=== PATIENT | female | born 1950 | race Caucasian/White ===

== ENCOUNTER → 2016-10-28 | Outpatient (CLI) | payer OTHER, MEDICAID ==
[~2016-10-28] MED LIST: ALENDRONATE SOD70 M1 PO; AMLODIPINE BESYL5 MG PO; ANTIBIOTIC; ANTIVERT/2525 MG PO; ASPIRIN325 M2 PO; BACTRIM DS 8001 TA1 PO; CARAFATE1 G1 PO; CATAFLAM50 MG PO; CLARITIN10 MG PO; CLINDAMYCIN HC300 MG PO; CLONAZEPAM2 MG PO; CYCLOBENZAPRINE10 MG PO; DELTASONE10 MG PO; DIAMOX SEQUELS500 MG PO; DIAMOX500 MG PO; DOXYCYCLINE HY100 M3 PO; DOXYCYCLINE HY100 M5 PO; DOXYCYCLINE MO100 MG PO; DOXYCYCLINE100 M3 PO; DUONEB 3 MG/3 ML3 M1 INH; DUONEB 3 MG/3 ML3 M1 NEB; FLEXERIL10 MG PO; FLEXERIL5 MG PO; GABAPENTIN TAB600 MG PO; HYCODAN/HYDROMET5 ML PO; HYDROCODONE BIT1 T11 PO; JANUMET 1000 MG1 TA1 PO; JANUMET 500 MG-1 TA1 PO; JANUMET 500 MG-1 TAB PO; JANUVIA25 MG PO; JANUVIA50 MG PO; KLONOPIN2 M1 PO; LASIX 40MG40 MG/4 ML PO; LASIX40 MG PO; LEVAQUIN750 MG PO; LOTENSIN40 MG PO; LOTREL 10 MG-201 CAP; LOTREL 10 MG-401 CA1 PO; LOTREL 10 MG-401 CAP PO; LOTREL 5 MG-101 CAP PO; MACROBID100 M1 PO; MEDROL DOSEPAK4 MG PO; METFORMIN500 MG PO; MOBIC7.5 MG PO; MOTRIN600 MG PO; MOTRIN800 MG PO; NAPROSYN500 MG PO; NEURONTIN300 MG PO; NORVASC10 MG PO; OMEPRAZOLE MAGN20 MG PO; OMNICEF300 MG PO; OXYGEN NAS; PERCOCET 325 MG1 TA2 PO; PERCOCET 325 MG1 TA3 PO; POTASSIUM20 MEQ PO; PREDNISONE10 MG PO; PREDNISONE50 MG PO; PROZAC20 MG PO; PYRIDIUM200 MG PO; REGLAN5 MG PO; RESTORIL15 MG PO; ROBITUSSIN AC 110 ML PO; SYMBICORT1 AE1 INH; TOPROL XL25 MG PO; TORADOL10 MG PO; TUSSI-ORGANID3840 M1 PO; TYLENOL W/CODEI1 TA2 PO; VENTOLIN H0.09 MG/AC INH; VIBRAMYCIN100 MG PO; VICODIN 5/500 505 MG PO; VITAMIN D50000 I1 PO; VITAMIN D50000 I3 PO; Vicodin 5/500 505 MG PO; WALKER DEVI; WELLBUTRIN XL300 MG PO; WHEELCHAIR DEVI; XANAX1 MG PO; XANAX2 M1 PO; ZITHROMAX500 MG PO; ZOCOR20 MG PO; ZOFRAN ODT4 MG SL; ZYRTEC10 M1 PO
== END | disposition home or self-care (01) ==
LOC: RAD 14:15
DX: M17.2 Bilateral post-traumatic osteoarthritis of knee (principal); M47.817 Spondylosis without myelopathy or radiculopathy, lumbosacral region; S52.502D Unspecified fracture of the lower end of left radius, subsequent encounter for closed fracture with routine healing; M25.561 Pain in right knee; M25.562 Pain in left knee; M11.262 Other chondrocalcinosis, left knee; M11.261 Other chondrocalcinosis, right knee; X58.XXXD Exposure to other specified factors, subsequent encounter

== ENCOUNTER 2016-11-28 20:49 | Inpatient (IN) | payer OTHER, MEDICAID ==
[~2016-11-28] VITALS: Ht 172.7 cm; Wt 125.0 kg
[~2016-11-28 20:49] MED LIST changes: -JANUMET 1000 MG1 TA1 PO; +JANUMET XR 50-1 EACH PO; +NORCO 7.5-3251 EACH PO
[2016-11-28 20:54] VITALS: BP 145/87
[2016-11-28 21:30] LABS: BASO % 0.4 % (0.0-1.0); EOS # 0.1 10*3/uL (0.0-0.4); HEMATOCRIT 33.5 % (37.0-47.0); HEMOGLOBIN 9.9 g/dl (12.0-16.0); LYMPH # 1.4 10*3/uL (1.3-4.4); LYMPH % 12.5 % (27.0-41.0); MEAN CELL VOLUME 82.7 fl (81.0-99.0); MEAN CORPUSCULAR HGB 24.4 pg (27.0-31.0); MEAN CORPUSCULAR HGB CONC 29.6 g/dl (33.0-37.0); MEAN PLATELET VOLUME 10.2 fl (9.6-12.3); MONO # 0.6 10*3/uL (0.1-1.0); MONO % 5.4 % (3.0-9.0); NEUT # 8.9 10*3/uL (2.3-7.9); NEUT % 80.3 % (47.0-73.0); PLATELET COUNT AUTOMATED 296 10*3/uL (130-400); RED BLOOD COUNT 4.05 10*6/uL (4.10-5.10); RED CELL DISTRI WIDTH 18.6 % (0-14.5)
[2016-11-28 21:47] LABS: ALBUMIN 3.6 gm/dl (3.1-4.5); CREATININE 1.29 mg/dL (0.55-1.02); POTASSIUM 2.9 mmol/L (3.5-5.1); TOTAL PROTEIN 7.5 gm/dL (6.4-8.2)
[2016-11-28 22:21] LABS: BILIRUBIN NEGATIVE (NEGATIVE); BLOOD NEGATIVE (NEGATIVE); CLARITY CLEAR (CLEAR); COLOR YELLOW (YELLOW); GLUCOSE NEGATIVE (NEGATIVE); KETONE TRACE (NEGATIVE); LEUKO ESTERASE NEGATIVE (NEGATIVE); NITRITE NEGATIVE (NEGATIVE); PH 5.5 (5.0-9.0); UROBILINOGEN 0.2 E.U./dl (0.2-1.0)
[2016-11-28 22:27] LABS: EPITHELIAL CELLS 25-30
[2016-11-28 22:28] LABS: BACTERIA 2+
[2016-11-29] VITALS: BP 128/72
[2016-11-29 06:58] LABS: BASO # 0.1 10*3/uL (0.0-0.1); BASO % 0.6 % (0.0-1.0); EOS # 0.2 10*3/uL (0.0-0.4); EOS % 1.9 % (1.0-4.0); HEMATOCRIT 33.1 % (37.0-47.0); HEMOGLOBIN 9.7 g/dl (12.0-16.0); LYMPH # 1.7 10*3/uL (1.3-4.4); LYMPH % 20.3 % (27.0-41.0); MEAN CORPUSCULAR HGB 25.3 pg (27.0-31.0); MEAN CORPUSCULAR HGB CONC 29.3 g/dl (33.0-37.0); MEAN PLATELET VOLUME 10.4 fl (9.6-12.3); MONO # 0.7 10*3/uL (0.1-1.0); MONO % 7.7 % (3.0-9.0); NEUT # 5.9 10*3/uL (2.3-7.9); NEUT % 69.1 % (47.0-73.0); PLATELET COUNT AUTOMATED 274 10*3/uL (130-400); RED BLOOD COUNT 3.84 10*6/uL (4.10-5.10); RED CELL DISTRI WIDTH 19.1 % (0-14.5); WHITE BLOOD COUNT 8.5 10*3/uL (4.8-10.8)
[2016-11-29 06:59] LABS: MEAN CELL VOLUME 86.2 fl (81.0-99.0)
[2016-11-29 07:11] LABS: ALBUMIN 3.3 gm/dl (3.1-4.5); CREATININE 1.22 mg/dL (0.55-1.02); PHOSPHOROUS 3.5 mg/dL (2.5-4.9); POTASSIUM 3.5 mmol/L (3.5-5.1); TOTAL PROTEIN 7.1 gm/dL (6.4-8.2)
[2016-11-29 07:16] LABS: FREE T4 1.16 ng/dl (0.76-1.46); THYROID STIM HORMONE (HS) 2.74 uIU/ml (0.358-4.75)
[2016-11-29 07:27] LABS: ACT PARTIAL THROMBO TIME 29.1 SECONDS (20.8-31.5)
[2016-11-29 08:00] VITALS: BP 108/62
[2016-11-29 08:19] LABS: VITAMIN D, 25-HYDROXY 20.4 ng/mL (30-100)
[2016-11-29] MEDS ORDERED: Motrin,Rufen800 MG PO (11:15)
[2016-11-29] MEDS ORDERED: ATROVENT HFA12.9 GM INH (11:17)
[2016-11-29] MEDS ORDERED: LAMICTAL25 MG PO (11:18)
[2016-11-29 12:00] VITALS: BP 100/50
[2016-11-29] MEDS ORDERED: Zofran4 MG PO (14:18)
[2016-11-29] MEDS ORDERED: VITAMIN D31000 UNIT PO (15:47)
[2016-11-29 16:00] VITALS: BP 119/72
== END 2016-11-29 16:30 | disposition home or self-care (01) | DRG 392 ==
LOC: ED 20:49 → EDHOLD 22:40 → 5E 22:40
PROVIDERS: Internal Medicine; Student in an Organized Health Care Education/Training Program; ADMIT Emergency Medicine
DX: K52.9 Noninfective gastroenteritis and colitis, unspecified (principal); E44.0 Moderate protein-calorie malnutrition; J96.10 Chronic respiratory failure, unspecified whether with hypoxia or hypercapnia; E87.2 Acidosis; E86.0 Dehydration; E87.6 Hypokalemia; D64.9 Anemia, unspecified; J44.9 Chronic obstructive pulmonary disease, unspecified; E11.65 Type 2 diabetes mellitus with hyperglycemia; E11.22 Type 2 diabetes mellitus with diabetic chronic kidney disease; N18.3 Chronic kidney disease, stage 3 (moderate); E87.8 Other disorders of electrolyte and fluid balance, not elsewhere classified; E66.9 Obesity, unspecified; G47.33 Obstructive sleep apnea (adult) (pediatric); E55.9 Vitamin D deficiency, unspecified; K80.20 Calculus of gallbladder without cholecystitis without obstruction; K76.0 Fatty (change of) liver, not elsewhere classified; I12.9 Hypertensive chronic kidney disease with stage 1 through stage 4 chronic kidney disease, or unspecified chronic kidney disease; Z87.81 Personal history of (healed) traumatic fracture; Z98.51 Tubal ligation status; Z87.891 Personal history of nicotine dependence; Z88.8 Allergy status to other drugs, medicaments and biological substances; Z82.5 Family history of asthma and other chronic lower respiratory diseases; Z82.49 Family history of ischemic heart disease and other diseases of the circulatory system; Z80.8 Family history of malignant neoplasm of other organs or systems

== ENCOUNTER → 2016-12-19 | Outpatient (CLI) | payer OTHER, MEDICAID ==
[~2016-12-19] MED LIST changes: +ATROVENT HFA12.9 GM INH; +LAMICTAL25 MG PO; +Motrin,Rufen800 MG PO; +VITAMIN D31000 UNIT PO; +Zofran4 MG PO
== END | disposition home or self-care (01) ==
LOC: US 17:00
DX: E11.9 Type 2 diabetes mellitus without complications (principal); E04.9 Nontoxic goiter, unspecified

== ENCOUNTER 2016-12-31 12:54 | Inpatient (IN) | payer OTHER, MEDICAID ==
[~2016-12-31] VITALS: Ht 167.6 cm; Wt 124.4 kg
[2016-12-31 12:58] VITALS: BP 118/68
[2016-12-31 13:42] LABS: BASO % 0.3 % (0.0-1.0); EOS # 0.2 10*3/uL (0.0-0.4); EOS % 1.3 % (1.0-4.0); HEMATOCRIT 35.6 % (37.0-47.0); HEMOGLOBIN 10.3 g/dl (12.0-16.0); LYMPH # 1.8 10*3/uL (1.3-4.4); LYMPH % 12.7 % (27.0-41.0); MEAN CELL VOLUME 85.2 fl (81.0-99.0); MEAN CORPUSCULAR HGB 24.6 pg (27.0-31.0); MEAN CORPUSCULAR HGB CONC 28.9 g/dl (33.0-37.0); MEAN PLATELET VOLUME 9.9 fl (9.6-12.3); MONO % 7.3 % (3.0-9.0); NEUT # 11.1 10*3/uL (2.3-7.9); PLATELET COUNT AUTOMATED 295 10*3/uL (130-400); RED BLOOD COUNT 4.18 10*6/uL (4.10-5.10); RED CELL DISTRI WIDTH 18.6 % (0-14.5); WHITE BLOOD COUNT 14.2 10*3/uL (4.8-10.8)
[2016-12-31 13:50] VITALS: BP 122/79
[2016-12-31 13:51] LABS: ACT PARTIAL THROMBO TIME 27.4 SECONDS (20.8-31.5)
[2016-12-31 13:57] LABS: ALBUMIN 3.3 gm/dl (3.1-4.5); ALKALINE PHOSPHATASE 86 U/L (45-117); BUN 18 mg/dl (7-24); CHLORIDE 108 mmol/L (98-107); CREATININE 1.49 mg/dL (0.55-1.02); LIPASE 177 U/L (73-393); MAGNESIUM 2.3 mg/dL (1.5-2.1); POTASSIUM 3.7 mmol/L (3.5-5.1); SGOT/AST 8 IU/L (3-35); SGPT/ALT 14 U/L (12-78); SODIUM 142 mmol/L (136-145); TOTAL PROTEIN 7.5 gm/dL (6.4-8.2)
[2016-12-31 14:01] LABS: TROPONIN I < 0.015 ng/ml (<0.045)
[2016-12-31 14:35] LABS: BILIRUBIN NEGATIVE (NEGATIVE); BLOOD NEGATIVE (NEGATIVE); CLARITY CLEAR (CLEAR); COLOR YELLOW (YELLOW); GLUCOSE NEGATIVE (NEGATIVE); KETONE NEGATIVE (NEGATIVE); LEUKO ESTERASE TRACE (NEGATIVE); NITRITE NEGATIVE (NEGATIVE)
[2016-12-31 14:49] LABS: BACTERIA 2+; EPITHELIAL CELLS 20-25; RBC 0-2 rbc/hpf (0-2)
[2016-12-31 14:50] LABS: MUCOUS TRACE
[2016-12-31 17:47] VITALS: BP 148/96
--- NOTE | 2016-12-31 18:29 | NUR ---
A 66, admitted to , under the services of MARK Beltran DO with a diagnosis of . Chief complaint is DIZZINESS AND NEAR-SYNCOPE. Patient arrived via ambulatory from ER. Monitor applied. Initial assessment completed. Vital signs taken and recorded. MARK BELTRAN DO notified of admission to the unit. Orders received. See assessment for past medical history, medications and allergies. Patient and/or family oriented to unit. [facility] visitation policy reviewed. Clothing/patient valuable form completed. ASHLEY ROMEO
[2016-12-31] MEDS ORDERED: LAMICTAL100 MG PO (20:09)
[2016-12-31] MEDS ORDERED: DIAMOX500 MG PO (20:14)
[2016-12-31] MEDS ORDERED: IBU800 MG PO (20:17)
[2016-12-31 20:46] VITALS: BP 110/60
[2017-01-01] VITALS: BP 134/79
--- NOTE | 2017-01-01 | NUR ---
SLEEPING, AWAKENS EASILY. RESPIRATIONS EASY. LUNGS DIMINISHED, CLEAR. PULSE OX 91% RA. CLAIMS COUGH PRODUCTIVE FOR YELLOW. TRACE BLE EDEMA NOTED. OFFERED AND EDUCATED REGARDING TEDS, DECLINED. CALL LIGHT WITHIN REACH. NO VOICED COMPLAINTS
--- NOTE | 2017-01-01 00:40 | NUR ---
REQUESTED AND RECEIVED NORCO PER PRN ORDER FOR COMPLAINTS OF BACK PAIN RATING AN 8. CALL LIGHT WITHIN REACH. WILL MONITOR FOR EFFECTIVENESS
--- NOTE | 2017-01-01 03:00 | NUR ---
EARLIER MED APPEARS EFFECTIVE. SLEEPING.
--- NOTE | 2017-01-01 06:00 | NUR ---
SLEPT THROUGHOUT NIGHT WITH NO DISTRESS NOTED. RESPIRATIONS EASY. CALL LIGHT WITHIN REACH. NO VOICED COMPLAINTS THIS SHIFT
[2017-01-01 06:02] LABS: BASO # 0.1 10*3/uL (0.0-0.1); BASO % 0.5 % (0.0-1.0); EOS # 0.2 10*3/uL (0.0-0.4); EOS % 1.2 % (1.0-4.0); HEMATOCRIT 33.5 % (37.0-47.0); HEMOGLOBIN 9.6 g/dl (12.0-16.0); LYMPH # 1.8 10*3/uL (1.3-4.4); LYMPH % 13.5 % (27.0-41.0); MEAN CELL VOLUME 86.3 fl (81.0-99.0); MEAN CORPUSCULAR HGB 24.7 pg (27.0-31.0); MEAN CORPUSCULAR HGB CONC 28.7 g/dl (33.0-37.0); MEAN PLATELET VOLUME 10.1 fl (9.6-12.3); MONO # 0.8 10*3/uL (0.1-1.0); MONO % 6.4 % (3.0-9.0); NEUT # 10.2 10*3/uL (2.3-7.9); NEUT % 77.9 % (47.0-73.0); PLATELET COUNT AUTOMATED 262 10*3/uL (130-400); RED BLOOD COUNT 3.88 10*6/uL (4.10-5.10); RED CELL DISTRI WIDTH 18.7 % (0-14.5); WHITE BLOOD COUNT 13.1 10*3/uL (4.8-10.8)
[2017-01-01 06:28] LABS: CREATININE 1.22 mg/dL (0.55-1.02); MAGNESIUM 2.4 mg/dL (1.5-2.1); TOTAL PROTEIN 6.8 gm/dL (6.4-8.2)
[2017-01-01 06:30] LABS: PHOSPHOROUS 4.8 mg/dL (2.5-4.9)
--- NOTE | 2017-01-01 07:40 | NUR ---
Medicated with norco per prn order for complaints of back and leg pain. Pt states pain is chronic and is 8/10.
[2017-01-01 08:00] VITALS: BP 128/70
--- NOTE | 2017-01-01 10:38 | NUR ---
Paper Coater in to talk to patient. Patient states lives at home with grand daughter. There are 0 steps in the home. Physician: Mendy Jones [facility] Home health services: would like [facility] nurse, pt and aides Patient's level of ADLs: MODERATE ASSIST Patient has working utilities: yes DME: edmundo paulino Follow-up physician's appointment after d/c: prefers to make her own appointment Does patient want to access PORTAL?: no Discharge plan Home. Patient stated she has an appointment in January to receive Passport services. In the meantime she would like to have a new referral for nursing, PT and aides from [facility]. . JAIR NGUYEN
--- NOTE | 2017-01-01 11:25 | NUR ---
PHYSICAL THERAPY PAtient evaluated on 4, full evaluation on to follow. Continue with PT as per plan of care with fall and chronic balance deficits precautions. Home with /7 family assist as prior and home health RN and PT prn. PAtient is moderate complexity via chart review, tests and evaluation: 70431. Thank you for this referral. samanta Mccord,PT
[2017-01-01 12:00] VITALS: BP 134/62
--- NOTE | 2017-01-01 12:38 | NUR ---
PHYSICAL THERAPY Halley was seen this PM 1:1 for her therapy gait, Pt supine in bed. Transfer supine/sit CGA X 1, sitting balance supervision x 1, X 5 min no LOB. Sit/stand and standing balance MOD DISHWASHING MACHINE OPERATOR X 1, with cueing just to stand. Followed by gait 125' X 1, MOD DISHWASHING MACHINE OPERATOR X 1, and Pt using the cortes hand rail at times for gait balance. Pt with gait balance deficits precautions and said that she may have walked too far. Pt back supine in bed to rest, call light and phone, treatment time 17 min. GEOVANNA GRADY SAFETY SITTER.
[2017-01-01 16:00] VITALS: BP 107/53
[2017-01-01 20:00] VITALS: BP 117/57
--- NOTE | 2017-01-01 21:00 | NUR ---
PATIENT STATED THAT IV WAS CAUSING HER PAIN. NO INFILTRATE WAS NOTED AND IV FLUSHED NORMAL. THE PATIENT REFUSED IV ABX AND REQUESTED THE IV TO COME OUT. DR. MYERS NOTIFIED AND STATED SINCE THE PT IS GOING TO BE DC IN THE MORNING A NEW IV WAS NOT NEEDED. NO OTHER CONCERNS FROM THE PATIENT.
[2017-01-02] VITALS: BP 138/59
--- NOTE | 2017-01-02 03:15 | NUR ---
PATIENT LSEPEING AT THIS TIME. NO DISTRESS NOTED. NO CONCERNS FROM PT.
[2017-01-02 08:00] VITALS: BP 128/66
[2017-01-02] MEDS ORDERED: SEPTDS PO (09:19)
[2017-01-02] MEDS ORDERED: MUCINEX ER600 MG PO (09:31)
--- NOTE | 2017-01-02 10:55 | NUR ---
Discharge instructions reviewed with patient/family. Patient receptive and verbalizes understanding. Follow-up care arranged. Written instructions given to patient/family. RAJINDER BRAVO
--- NOTE | 2017-01-02 12:31 | NUR ---
Patient discharged to home with new referral for [facility]. Faxed order and referral to [facility].
--- NOTE | 2017-01-02 14:26 | NUR ---
PHYSICAL THERAPY CO-SIGN I approve of the Phyical Therapy notes written above. NABIL LANGSTON PT
--- NOTE | 2017-01-02 14:30 | NUR ---
PHYSICAL THERAPY Patient performed all transfers Independenly. Patient performed gait with Close Supervision 200' x 1 with no assistive device. Patient performed ther ex in seated position x 10 minutes in all planes. Patient performed gait for 8 minutes 1:1 with TICKET SALES AGENT. Eliot Worrell PTA
== END 2017-01-02 10:55 | disposition home or self-care (01) | DRG 690 ==
LOC: ED 12:54 → 4E 16:20 → EDHOLD 16:20 → 4E 16:38
PROVIDERS: Emergency Medicine; Registered Nurse; ADMIT Internal Medicine
DX: N30.00 Acute cystitis without hematuria (principal); E44.0 Moderate protein-calorie malnutrition; E11.22 Type 2 diabetes mellitus with diabetic chronic kidney disease; E11.65 Type 2 diabetes mellitus with hyperglycemia; J44.1 Chronic obstructive pulmonary disease with (acute) exacerbation; Z68.41 Body mass index [BMI] 40.0-44.9, adult; N18.3 Chronic kidney disease, stage 3 (moderate); I12.9 Hypertensive chronic kidney disease with stage 1 through stage 4 chronic kidney disease, or unspecified chronic kidney disease; G47.33 Obstructive sleep apnea (adult) (pediatric); R26.81 Unsteadiness on feet; I71.9 Aortic aneurysm of unspecified site, without rupture; E66.09 Other obesity due to excess calories; E55.9 Vitamin D deficiency, unspecified; D64.9 Anemia, unspecified; Z91.19 Patient's noncompliance with other medical treatment and regimen; Z98.51 Tubal ligation status; Z88.8 Allergy status to other drugs, medicaments and biological substances; Z80.8 Family history of malignant neoplasm of other organs or systems; Z87.81 Personal history of (healed) traumatic fracture; Z82.49 Family history of ischemic heart disease and other diseases of the circulatory system

== ENCOUNTER → 2017-02-18 | Outpatient (CLI) | payer OTHER, MEDICAID ==
[~2017-02-18] MED LIST changes: +FEOSOL325 MG PO; +IBU800 MG PO; +KLONOPIN1 M1 PO; +LAMICTAL100 MG PO; +MUCINEX ER600 MG PO; +SEPTDS PO; +VOLTAREN100 GM T
--- NOTE | ~2017-02-18 | ST ---
[place], [place] EXERCISE STRESS TEST REPORT [id number] UN[facility] #: [id number] ROOM: DOCTOR: ASHIA RUFFIN MD BIRTHDATE: [birth year] DOS: 02/18/2017 Lexiscan portion of the Lexiscan Cardiolite. Baseline cardiogram sinus rhythm with nonspecific ST-T changes. A 0.4 mg of Lexiscan, duration of 10 seconds. With Lexiscan, the patient did not develop any chest pain or shortness of breath, but did have evidence of premature atrial contraction in an atrial bigeminal fashion, which reverted back to sinus rhythm. Blood pressure and heart rate response was normal. Nuclear images will be reported separately. ASHIA RUFFIN MD CM:STRESS:EXERCISE STRESS TEST REPORT [id number] HYACINTH RUFFIN MD
--- NOTE | 2017-02-18 07:15 | NUR ---
INFORMED CONSENT OBTAINED FOR LEXISCAN NUCLEAR STRESS TEST WITH DR. RUFFIN. RESTING EKG NSR WITH FREQUENT PAC'S WITH A RESTING HR OF 67 WITH BP OF 110/60. LUNGS WITH DIMINISHED BS WITH SPO2 OF 96% ON ROOM AIR. PT COMPLETED A 1:00 LEXISCAN PROTOCOL RECEIVING LEXISCAN 0.4 MG IV OVER 10 SECONDS. HAD NO CHEST PAIN OR ANY ST CHANGES. HAS C/O "ODD FEELING" THAT WAS RELIEVED IN RECOVERY. HAD A PEAK HR OF 79 WITH BP OF 94/58. LAST RECOVERY HR OF 78 WITH BP OF 100/58. AWAITING SCANNING IN STABLE CONDITION.
== END | disposition home or self-care (01) ==
LOC: CARD 02-11 07:30
DX: R06.09 Other forms of dyspnea (principal); R53.81 Other malaise; R06.02 Shortness of breath

== ENCOUNTER → 2017-02-26 | Outpatient (CLI) | payer OTHER, MEDICAID | END | disposition home or self-care (01) | LOC: MAMMO 10:17 | DX: Z12.31 Encounter for screening mammogram for malignant neoplasm of breast (principal) ==

== ENCOUNTER 2017-03-29 01:10 | Emergency (ER) | payer OTHER, MEDICAID ==
[~2017-03-29] VITALS: Ht 170.1 cm; Wt 122.5 kg
[2017-03-29 01:14] VITALS: BP 102/69
[2017-03-29] MEDS ORDERED: TESSALON PERLE100 MG PO (02:16)
[2017-03-29] MEDS ORDERED: AVPAK AZITHROM250 M1 PO (02:16)
== END 2017-03-29 03:02 | disposition home or self-care (01) ==
LOC: ED 01:10
DX: J18.9 Pneumonia, unspecified organism (principal); E11.22 Type 2 diabetes mellitus with diabetic chronic kidney disease; I12.9 Hypertensive chronic kidney disease with stage 1 through stage 4 chronic kidney disease, or unspecified chronic kidney disease; N18.3 Chronic kidney disease, stage 3 (moderate); J44.1 Chronic obstructive pulmonary disease with (acute) exacerbation; J96.10 Chronic respiratory failure, unspecified whether with hypoxia or hypercapnia; E78.00 Pure hypercholesterolemia, unspecified; E11.65 Type 2 diabetes mellitus with hyperglycemia; E87.6 Hypokalemia; E44.0 Moderate protein-calorie malnutrition; Z98.51 Tubal ligation status; Z87.891 Personal history of nicotine dependence; Z88.8 Allergy status to other drugs, medicaments and biological substances; Z79.899 Other long term (current) drug therapy

== ENCOUNTER → 2017-04-15 | Outpatient (CLI) | payer OTHER, MEDICAID ==
[~2017-04-15] MED LIST changes: +AVPAK AZITHROM250 M1 PO; +TESSALON PERLE100 MG PO
== END | disposition home or self-care (01) ==
LOC: RAD 14:44
DX: J18.9 Pneumonia, unspecified organism (principal)

== ENCOUNTER 2017-05-05 12:59 | Emergency (ER) | payer OTHER, MEDICAID ==
[~2017-05-05] VITALS: Ht 172.7 cm; Wt 123.4 kg
[2017-05-05 13:04] VITALS: BP 150/64
== END 2017-05-05 14:56 | disposition home or self-care (01) ==
LOC: ED 12:59
DX: S39.012A Strain of muscle, fascia and tendon of lower back, initial encounter (principal); E11.22 Type 2 diabetes mellitus with diabetic chronic kidney disease; I12.9 Hypertensive chronic kidney disease with stage 1 through stage 4 chronic kidney disease, or unspecified chronic kidney disease; N18.3 Chronic kidney disease, stage 3 (moderate); E66.9 Obesity, unspecified; W18.39XA Other fall on same level, initial encounter; F17.210 Nicotine dependence, cigarettes, uncomplicated; Z88.8 Allergy status to other drugs, medicaments and biological substances; Z79.4 Long term (current) use of insulin; Z79.899 Other long term (current) drug therapy; Y93.89 Activity, other specified; Y92.090 Kitchen in other non-institutional residence as the place of occurrence of the external cause; Y99.8 Other external cause status

== ENCOUNTER → 2017-05-07 | Outpatient (CLI) | payer OTHER, MEDICAID ==
[2017-05-07 12:57] LABS: BASO # 0.1 10*3/uL (0.0-0.1); BASO % 0.6 % (0.0-1.0); EOS # 0.2 10*3/uL (0.0-0.4); EOS % 1.7 % (1.0-4.0); HEMATOCRIT 39.4 % (37.0-47.0); HEMOGLOBIN 11.6 g/dl (12.0-16.0); LYMPH # 1.3 10*3/uL (1.3-4.4); LYMPH % 13.4 % (27.0-41.0); MEAN CELL VOLUME 88.1 fl (81.0-99.0); MEAN CORPUSCULAR HGB CONC 29.4 g/dl (33.0-37.0); MEAN PLATELET VOLUME 10.1 fl (9.6-12.3); MONO # 0.5 10*3/uL (0.1-1.0); MONO % 4.5 % (3.0-9.0); NEUT # 7.9 10*3/uL (2.3-7.9); NEUT % 79.4 % (47.0-73.0); PLATELET COUNT AUTOMATED 276 10*3/uL (130-400); RED BLOOD COUNT 4.47 10*6/uL (4.10-5.10); RED CELL DISTRI WIDTH 19.6 % (0-14.5)
[2017-05-07 13:06] LABS: BILIRUBIN NEGATIVE (NEGATIVE); BLOOD NEGATIVE (NEGATIVE); CLARITY SL CLOUDY (CLEAR); COLOR YELLOW (YELLOW); GLUCOSE NEGATIVE (NEGATIVE); KETONE NEGATIVE (NEGATIVE); LEUKO ESTERASE NEGATIVE (NEGATIVE); NITRITE NEGATIVE (NEGATIVE)
[2017-05-07 13:21] LABS: ALBUMIN 3.5 gm/dl (3.1-4.5); CREATININE 1.25 mg/dL (0.55-1.02); PHOSPHOROUS 3.3 mg/dL (2.5-4.9); POTASSIUM 4.1 mmol/L (3.5-5.1)
[2017-05-07 13:42] LABS: BACTERIA TRACE; EPITHELIAL CELLS 30-40
[2017-05-07 14:38] LABS: FERRITIN 6.6 ng/mL (10.0-291.0); PTH INTACT 77.2 pg/mL (14.0-72.0); VITAMIN D, 25-HYDROXY 16.7 ng/mL (30-100)
== END | disposition home or self-care (01) ==
LOC: LAB 12:11
PROVIDERS: Internal Medicine Nephrology
DX: N17.9 Acute kidney failure, unspecified (principal); N18.3 Chronic kidney disease, stage 3 (moderate); D63.1 Anemia in chronic kidney disease; N25.81 Secondary hyperparathyroidism of renal origin; N28.1 Cyst of kidney, acquired

== ENCOUNTER → 2017-07-07 | Outpatient (CLI) | payer OTHER, MEDICAID | END | disposition home or self-care (01) | LOC: US 06-27 11:00 | DX: E11.9 Type 2 diabetes mellitus without complications (principal) ==

== ENCOUNTER 2017-09-03 17:07 | Inpatient (IN) | payer OTHER, MEDICAID ==
[2017-09-03] VITALS (7 sets, daily range): BP systolic 90–121; BP diastolic 52–73
[~2017-09-03] VITALS: Ht 172.7 cm; Wt 124.3 kg
--- NOTE | ~2017-09-03 | CON ---
[place], [place] REPORT OF CONSULTATION NAME: FARHAT LAWLER [facility] #: [id number] UNIT #: [id number] ROOM: 412 [facility] BIR[facility] [birth year] DOS: 09/04/2017 CARDIOLOGY CONSULTATION HISTORY OF PRESENT ILLNESS: The patient came in with history of diastolic dysfunction with congestive heart failure and also shortness of breath and did not feel well at all and some confusion and the patient has a chronic kidney disease, CKD 3. The patient also has extreme fatigue and diminished appetite and a very tired sensation. The patient is on antibiotics now. The patient came to the Emergency Room. The patient has history of abdominal aortic aneurysm and will be evaluated further subsequently, but no acute consequence from that, history of cholelithiasis and recurrent congestive heart failure, respiratory insufficiency and GFR is only 30 to 15 mL diminished and chronic depression, essential hypertension and also the patient with dyslipidemia. The patient has type 2 diabetes mellitus. PAST SURGICAL HISTORY: Including open reduction and internal fixation and history of tubal ligation and wrist fracture. SOCIAL HISTORY: No history of smoking now, but a previous history of smoking, and occasional alcohol use, no drug use. FAMILY HISTORY: Mother has history of congestive heart failure, at 77. Father had a cancer, at 77. ALLERGIES: ALLERGIC TO LAMICTAL. MEDICATIONS: The patient is on iron supplements, furosemide, gabapentin, oxygen at home, simvastatin. The patient is also on metformin. We will keep it on hold for 48-72 hours. PHYSICAL EXAMINATION: GENERAL: The patient moderately obese. VITAL SIGNS: Blood pressure is 120/60, heart rate is 70. SKIN: Warm and not diaphoretic. NECK: Supple. No jugular venous distention. LUNGS: Diminished breath sounds at bases. HEART: S1, S2 regular. No rubs. ABDOMEN: Soft, obese. No significant edema noted. Pedal pulses good. RECTAL: Deferred, unrelated. GENITAL: Deferred, unrelated. BREASTS: Deferred, unrelated. LABORATORY DATA: Troponin is elevated. Creatinine is elevated. Hemoglobin is normal. Chest x-ray showed pulmonary congestion, could be related to the coronary artery disease, diastolic dysfunction of the left ventricle. Initial troponin was 0.578, next was 0.43, probably related to the non-ST elevation myocardial infarction. ASSESSMENT AND PLAN: The patient is for coronary arteriography and possible [place], [place] REPORT OF CONSULTATION NAME: FARHAT LAWLER UNIT #: [id number] ROOM: 412 DOCTOR: GRANT MOORE [facility] BIRTHDATE: [birth year] revascularization of right radial. Bobby test on the right wrist is normal. STACY BURNS MD CM:CONSTR:REPORT OF CONSULTATION 1859 09/26/17 0759 interface KAROLINA LUNA DO and TASHA CHOUDHURY DO
--- NOTE | ~2017-09-03 | EKG ---
[place], [place] ELECTROCARDIOGRAM REPORT NAME: FARHAT LAWLER UNIT #: [id number] ROOM: [facility] DOCTOR: GRANT MOORE [facility] BIRTHDATE: [birth year] DOS: 09/03/2017 TIME: 1809 hours. CONCLUSION: Sinus rhythm, low voltage, poor R-wave progression in the precordial leads, left axis, nonspecific ST changes. STACY BURNS MD CM:EKGRPT:ELECTROCARDIOGRAM REPORT [id number] STACY BURNS MD [facility]
[~2017-09-03 17:07] MED LIST changes: +ACETAZOLAMIDE250 MG PO
[2017-09-03 17:56] LABS: ABG HCO3 20.2 mmol/l (22-26); ABG O2 SATURATION 95.6 % (95-97); ARTERIAL BLOOD GAS PH 7.274 (7.35-7.45); ARTERIAL BLOOD GAS PO2 82.8 mmHg (80-90)
[2017-09-03 18:25] LABS: BASO # 0.1 10*3/uL (0.0-0.1); BASO % 0.6 % (0.0-1.0); EOS % 0.2 % (1.0-4.0); HEMATOCRIT 39.2 % (37.0-47.0); HEMOGLOBIN 11.5 g/dl (12.0-16.0); LYMPH # 3.1 10*3/uL (1.3-4.4); LYMPH % 24.5 % (27.0-41.0); MEAN CELL VOLUME 91.8 fl (81.0-99.0); MEAN CORPUSCULAR HGB 26.9 pg (27.0-31.0); MEAN CORPUSCULAR HGB CONC 29.3 g/dl (33.0-37.0); MEAN PLATELET VOLUME 10.2 fl (9.6-12.3); MONO # 1.4 10*3/uL (0.1-1.0); MONO % 11.4 % (3.0-9.0); NEUT # 7.9 10*3/uL (2.3-7.9); NEUT % 62.7 % (47.0-73.0); PLATELET COUNT AUTOMATED 283 10*3/uL (130-400); RED BLOOD COUNT 4.27 10*6/uL (4.10-5.10); RED CELL DISTRI WIDTH 16.8 % (0-14.5); WHITE BLOOD COUNT 12.6 10*3/uL (4.8-10.8)
[2017-09-03 18:33] LABS: ACT PARTIAL THROMBO TIME 29.6 SECONDS (20.8-31.5); INTERNATIONAL NORM RATIO 1.1 (2.0-3.5)
[2017-09-03 18:41] LABS: ALBUMIN 2.9 gm/dl (3.1-4.5); CREATININE 1.59 mg/dL (0.55-1.02); POTASSIUM 4.3 mmol/L (3.5-5.1); TOTAL PROTEIN 7.1 gm/dL (6.4-8.2)
[2017-09-03 18:47] LABS: TROPONIN I 0.877 ng/ml (<0.045)
[2017-09-03 21:23] LABS: BILIRUBIN NEGATIVE (NEGATIVE); BLOOD NEGATIVE (NEGATIVE); CLARITY CLEAR (CLEAR); COLOR YELLOW (YELLOW); GLUCOSE NEGATIVE (NEGATIVE); KETONE NEGATIVE (NEGATIVE); LEUKO ESTERASE NEGATIVE (NEGATIVE); NITRITE NEGATIVE (NEGATIVE); PH 5.5 (5.0-9.0); SPECIFIC GRAVITY <= 1.005 (1.005-1.030); UROBILINOGEN 0.2 E.U./dl (0.2-1.0)
[2017-09-03 21:34] LABS: BACTERIA 2+; RBC 0-2 rbc/hpf (0-2)
[2017-09-03 22:01] LABS: CKMB 2.5 ng/ml (0.5-3.6)
[2017-09-03 22:05] LABS: TROPONIN I 0.578 ng/ml (<0.045)
[2017-09-03] MEDS ORDERED: NORCO 10-325 T1 EACH PO (22:23)
[2017-09-04 00:16] VITALS: BP 100/52; BP 90/47
[2017-09-04 00:42] LABS: CKMB 2.5 ng/ml (0.5-3.6)
[2017-09-04 00:48] LABS: TROPONIN I 0.43 ng/ml (<0.045)
[2017-09-04 06:08] LABS: BASO # 0.1 10*3/uL (0.0-0.1); BASO % 0.5 % (0.0-1.0); EOS # 0.1 10*3/uL (0.0-0.4); EOS % 0.7 % (1.0-4.0); HEMATOCRIT 41.5 % (37.0-47.0); LYMPH # 1.2 10*3/uL (1.3-4.4); LYMPH % 9.8 % (27.0-41.0); MEAN CELL VOLUME 93.7 fl (81.0-99.0); MEAN CORPUSCULAR HGB 27.1 pg (27.0-31.0); MEAN CORPUSCULAR HGB CONC 28.9 g/dl (33.0-37.0); MEAN PLATELET VOLUME 10.5 fl (9.6-12.3); MONO # 1.1 10*3/uL (0.1-1.0); MONO % 9.2 % (3.0-9.0); NEUT # 9.5 10*3/uL (2.3-7.9); NEUT % 78.9 % (47.0-73.0); PLATELET COUNT AUTOMATED 247 10*3/uL (130-400); RED BLOOD COUNT 4.43 10*6/uL (4.10-5.10); RED CELL DISTRI WIDTH 16.8 % (0-14.5)
[2017-09-04 06:39] LABS: ALBUMIN 2.9 gm/dl (3.1-4.5); CREATININE 1.42 mg/dL (0.55-1.02); PHOSPHOROUS 3.8 mg/dL (2.5-4.9); POTASSIUM 4.2 mmol/L (3.5-5.1); TOTAL PROTEIN 7.1 gm/dL (6.4-8.2)
[2017-09-04 06:47] LABS: THYROID STIM HORMONE (HS) 0.623 uIU/ml (0.358-4.75)
[2017-09-04 08:00] VITALS: BP 91/55
[2017-09-04 08:36] LABS: VITAMIN D, 25-HYDROXY 25.2 ng/mL (30-100)
[2017-09-04] MEDS ORDERED: KLOR-CON M2020 ME1 PO (10:06)
[2017-09-04] MEDS ORDERED: ALL DAY ALLERGY10 M2 PO (10:07)
[2017-09-04 12:00] VITALS: BP 103/67
[2017-09-04 16:00] VITALS: BP 102/62
[2017-09-04] MEDS ORDERED: CARVEDILOL3.125 MG PO (19:05)
[2017-09-04 20:00] VITALS: BP 126/82
[2017-09-05] VITALS: BP 102/66
== END 2017-09-05 05:24 | disposition other institution (70) | DRG 683 ==
LOC: ED 17:07 → 4E 19:21 → EDHOLD 19:21 → 4E 20:05
PROVIDERS: Internal Medicine Hospice and Palliative Medicine; Physician Assistant
DX: N17.0 Acute kidney failure with tubular necrosis (principal); J96.11 Chronic respiratory failure with hypoxia; E44.0 Moderate protein-calorie malnutrition; I50.32 Chronic diastolic (congestive) heart failure; Z68.41 Body mass index [BMI] 40.0-44.9, adult; E87.8 Other disorders of electrolyte and fluid balance, not elsewhere classified; D72.829 Elevated white blood cell count, unspecified; D72.810 Lymphocytopenia; E11.65 Type 2 diabetes mellitus with hyperglycemia; E66.01 Morbid (severe) obesity due to excess calories; D64.9 Anemia, unspecified; E55.9 Vitamin D deficiency, unspecified; K80.20 Calculus of gallbladder without cholecystitis without obstruction; N18.3 Chronic kidney disease, stage 3 (moderate); J44.9 Chronic obstructive pulmonary disease, unspecified; F32.9 Major depressive disorder, single episode, unspecified; I11.0 Hypertensive heart disease with heart failure; F41.1 Generalized anxiety disorder; E78.2 Mixed hyperlipidemia; G47.33 Obstructive sleep apnea (adult) (pediatric); E11.40 Type 2 diabetes mellitus with diabetic neuropathy, unspecified; E11.22 Type 2 diabetes mellitus with diabetic chronic kidney disease; Z99.81 Dependence on supplemental oxygen; Z98.51 Tubal ligation status; Z80.9 Family history of malignant neoplasm, unspecified; Z83.6 Family history of other diseases of the respiratory system; Z82.49 Family history of ischemic heart disease and other diseases of the circulatory system; Z88.8 Allergy status to other drugs, medicaments and biological substances; Z79.899 Other long term (current) drug therapy; Z87.891 Personal history of nicotine dependence; Z82.5 Family history of asthma and other chronic lower respiratory diseases; Z81.8 Family history of other mental and behavioral disorders; Z83.3 Family history of diabetes mellitus

== ENCOUNTER → 2018-03-06 | Outpatient (CLI) | payer OTHER, MEDICAID ==
[~2018-03-06] MED LIST changes: +ALL DAY ALLERGY10 M2 PO; +CARVEDILOL3.125 MG PO; +CEPHALEXIN500 M1 PO; +KLOR-CON M2020 ME1 PO; +NORCO 10-325 T1 EACH PO
== END | disposition home or self-care (01) ==
LOC: US 10:25
DX: Z13.6 Encounter for screening for cardiovascular disorders (principal); I71.4 Abdominal aortic aneurysm, without rupture

== ENCOUNTER → 2018-03-27 | Outpatient (CLI) | payer OTHER, MEDICAID ==
[2018-03-27 15:29] LABS: CREATININE 1.07 mg/dL (0.55-1.02)
== END | disposition home or self-care (01) ==
LOC: LAB 14:55 → CT 14:55
PROVIDERS: Internal Medicine Cardiovascular Disease
DX: I71.4 Abdominal aortic aneurysm, without rupture (principal)

== ENCOUNTER 2018-09-13 17:20 | Inpatient (IN) | payer OTHER ==
[~2018-09-13] VITALS: Ht 175.2 cm; Wt 136.1 kg
--- NOTE | ~2018-09-13 | EKG ---
[place], [place] ELECTROCARDIOGRAM REPORT NAME: FARHAT LAWLER UNIT #: [id number] ROOM: 422 DOCTOR: DAYSI DRAFT REPORT BIRTHDATE: [birth year] [facility] Test Date: 2018-09-13 Test Time: 17:22:04 Pat Name: FARHAT LAWLER Department: ER Room: 422 Gender: F Manager Net: : 1950 Requested By: WAN HOBBS Order Number: [id number] Reading MD: Xochilt Hernández MD Measurements Intervals [place] Rate: 94 P: 60 FL: 150 QRS: -42 QRSD: 96 T: 56 QT: 346 QTc: 433 Interpretive Statements Sinus rhythm Left anterior fascicular block Borderline low voltage, extremity leads Compared to ECG 01/30/2018 13:24:28 Left anterior fascicular block now present Left-axis deviation no longer present Electronically Signed On 09-14-2018 15:04:26 PDT by Xochilt Hernández MD CM:EKGRPT:ELECTROCARDIOGRAM REPORT [id number] 1504 WAN AGUILERA DRAFT REPORT WAN HOBBS DO
--- NOTE | ~2018-09-13 | EKG ---
[place], [place] ELECTROCARDIOGRAM REPORT NAME: FARHAT LAWLER UNIT #: [id number] ROOM: 422 DOCTOR: DAYSI DRAFT REPORT BIRTHDATE: [birth year] [facility] Test Date: 2018-09-13 Test Time: 23:58:41 Pat Name: FARHAT LAWLER Department: Room: 422 Gender: F China Painter: EKG.TX : 1950 Requested By: WAN HOBBS Order Number: [id number] Reading MD: Xochilt Hernández MD Measurements Intervals [place] Rate: 91 P: 35 IN: 167 QRS: -34 QRSD: 96 T: 44 QT: 375 QTc: 462 Interpretive Statements Sinus rhythm Left axis deviation Low voltage, extremity and precordial leads Baseline wander in lead(s) III Compared to ECG 01/30/2018 13:24:28 Low QRS voltage now present Electronically Signed On 09-14-2018 15:07:56 PDT by Xochilt Hernández MD CM:EKGRPT:ELECTROCARDIOGRAM REPORT [id number] WAN AGUILERA DRAFT REPORT WAN HOBBS DO
--- NOTE | ~2018-09-13 | EKG ---
[place], [place] ELECTROCARDIOGRAM REPORT NAME: FARHAT LAWLER UNIT #: [id number] ROOM: 422 DOCTOR: DAYSI DRAFT REPORT BIRTHDATE: [birth year] [facility] Test Date: 2018-09-13 Test Time: 20:29:55 Pat Name: FARHAT LAWLER Department: Room: 422 Gender: F Founder And Chief Executive Officer: EKG.SC : 1950 Requested By: WAN HOBBS Order Number: [id number] Reading MD: Xochilt Hernández MD Measurements Intervals [place] Rate: 80 P: 61 MI: 157 QRS: -26 QRSD: 92 T: 57 QT: 385 QTc: 445 Interpretive Statements Sinus rhythm Borderline left axis deviation Low voltage, extremity and precordial leads Abnormal R-wave progression, late transition Baseline wander in lead(s) V1 Compared to ECG 01/30/2018 13:24:28 Low QRS voltage now present Electronically Signed On 09-14-2018 15:06:15 PDT by Xochilt Hernández MD CM:EKGRPT:ELECTROCARDIOGRAM REPORT [id number] WAN AGUILERA DRAFT REPORT WAN HOBBS DO
[2018-09-13 17:25] VITALS: BP 149/103
[2018-09-13 17:43] LABS: BASO # 0.1 10*3/uL (0.0-0.1); BASO % 0.5 % (0.0-1.0); EOS # 0.1 10*3/uL (0.0-0.4); EOS % 0.4 % (1.0-4.0); HEMOGLOBIN 11.9 g/dl (12.0-16.0); LYMPH # 1.5 10*3/uL (1.3-4.4); LYMPH % 10.3 % (27.0-41.0); MEAN CELL VOLUME 93.8 fl (81.0-99.0); MEAN CORPUSCULAR HGB 28.6 pg (27.0-31.0); MEAN CORPUSCULAR HGB CONC 30.5 g/dl (33.0-37.0); MEAN PLATELET VOLUME 10.3 fl (9.6-12.3); MONO # 0.5 10*3/uL (0.1-1.0); MONO % 3.3 % (3.0-9.0); NEUT # 12.1 10*3/uL (2.3-7.9); NEUT % 84.8 % (47.0-73.0); PLATELET COUNT AUTOMATED 275 10*3/uL (130-400); RED BLOOD COUNT 4.16 10*6/uL (4.10-5.10); RED CELL DISTRI WIDTH 16.4 % (0-14.5); WHITE BLOOD COUNT 14.3 10*3/uL (4.8-10.8)
[2018-09-13 17:55] LABS: ACT PARTIAL THROMBO TIME 26.9 SECONDS (20.0-32.1)
[2018-09-13 18:00] LABS: ALBUMIN 2.9 gm/dl (3.1-4.5); CREATININE 1.44 mg/dL (0.55-1.02); POTASSIUM 4.4 mmol/L (3.5-5.1); TROPONIN I 0.033 ng/ml (<0.045)
[2018-09-13 19:15] LABS: ABG BASE EXCESS 1.6 mmol/L (-2.0-2.0); ABG HCO3 28.3 mmol/l (22-26); ARTERIAL BLOOD GAS PCO2 56.5 mmHg (35-45); ARTERIAL BLOOD GAS PH 7.318 (7.35-7.45); ARTERIAL BLOOD GAS PO2 77.7 mmHg (80-90)
[2018-09-13 20:00] VITALS: BP 124/64
[2018-09-13 20:52] VITALS: BP 135/75
[2018-09-14] VITALS: BP 141/78
[2018-09-14 06:44] LABS: BASO % 0.2 % (0.0-1.0); HEMATOCRIT 36.7 % (37.0-47.0); HEMOGLOBIN 11.1 g/dl (12.0-16.0); LYMPH # 1.3 10*3/uL (1.3-4.4); LYMPH % 10.4 % (27.0-41.0); MEAN CELL VOLUME 92.7 fl (81.0-99.0); MEAN CORPUSCULAR HGB CONC 30.2 g/dl (33.0-37.0); MEAN PLATELET VOLUME 10.4 fl (9.6-12.3); MONO # 0.1 10*3/uL (0.1-1.0); NEUT # 10.6 10*3/uL (2.3-7.9); NEUT % 86.9 % (47.0-73.0); PLATELET COUNT AUTOMATED 247 10*3/uL (130-400); RED BLOOD COUNT 3.96 10*6/uL (4.10-5.10); RED CELL DISTRI WIDTH 16.3 % (0-14.5); WHITE BLOOD COUNT 12.2 10*3/uL (4.8-10.8)
[2018-09-14 07:06] LABS: CREATININE 1.17 mg/dL (0.55-1.02); FREE T4 0.87 ng/dl (0.76-1.46); PHOSPHOROUS 2.7 mg/dL (2.5-4.9); POTASSIUM 4.4 mmol/L (3.5-5.1)
[2018-09-14 07:14] LABS: THYROID STIM HORMONE (HS) 0.475 uIU/ml (0.358-4.75)
[2018-09-14 08:00] VITALS: BP 112/58
[2018-09-14] MEDS ORDERED: ERYTHROMYCIN OPH1 GM OPH (09:58)
[2018-09-14] MEDS ORDERED: OMEPRAZOLE40 MG PO (09:59)
[2018-09-14] MEDS ORDERED: MIRTAZAPINE15 M2 PO (10:01)
[2018-09-14] MEDS ORDERED: JANUMET XR 50-1 EACH PO (10:03)
[2018-09-14] MEDS ORDERED: BUSPIRONE HCL15 MG PO (10:04)
[2018-09-14] MEDS ORDERED: LYRICA200 M1 PO (10:04)
[2018-09-14 12:00] VITALS: BP 138/70
[2018-09-14 16:00] VITALS: BP 119/52
[2018-09-14 20:00] VITALS: BP 123/66
[2018-09-15] VITALS: BP 115/44
[2018-09-15 08:00] VITALS: BP 102/58; BP 117/73
[2018-09-15 08:10] LABS: HEPATITIS B SURFACE AG Negative (Negative); HEPATITIS C AB <0.1 (0.0-0.9)
[2018-09-15 12:00] VITALS: BP 126/82
[2018-09-15] MEDS ORDERED: DOXYCYCLINE100 MG PO (14:32)
[2018-09-15] MEDS ORDERED: PREDNISONE10 MG PO (14:32)
[2018-10-10] MEDS ORDERED: DOXYCYCLINE100 M3 PO (15:54)
[2018-10-10] MEDS ORDERED: ROPINIROLE HY0.25 MG PO (15:54)
== END 2018-09-15 14:35 | disposition home or self-care (01) | DRG 871 ==
LOC: ED 17:20 → 4E 18:42 → EDHOLD 18:42 → 4E 19:41
PROVIDERS: Emergency Medicine; Student in an Organized Health Care Education/Training Program; ADMIT Internal Medicine
DX: A41.9 Sepsis, unspecified organism (principal); J18.9 Pneumonia, unspecified organism; G93.41 Metabolic encephalopathy; N17.0 Acute kidney failure with tubular necrosis; J96.22 Acute and chronic respiratory failure with hypercapnia; J96.21 Acute and chronic respiratory failure with hypoxia; I50.32 Chronic diastolic (congestive) heart failure; J44.1 Chronic obstructive pulmonary disease with (acute) exacerbation; I13.0 Hypertensive heart and chronic kidney disease with heart failure and stage 1 through stage 4 chronic kidney disease, or unspecified chronic kidney disease; E87.2 Acidosis; J44.0 Chronic obstructive pulmonary disease with (acute) lower respiratory infection; Z68.41 Body mass index [BMI] 40.0-44.9, adult; F41.1 Generalized anxiety disorder; E11.40 Type 2 diabetes mellitus with diabetic neuropathy, unspecified; R65.20 Severe sepsis without septic shock; G47.33 Obstructive sleep apnea (adult) (pediatric); N18.3 Chronic kidney disease, stage 3 (moderate); E11.65 Type 2 diabetes mellitus with hyperglycemia; E11.22 Type 2 diabetes mellitus with diabetic chronic kidney disease; F32.9 Major depressive disorder, single episode, unspecified; E78.2 Mixed hyperlipidemia; E66.01 Morbid (severe) obesity due to excess calories; Z88.8 Allergy status to other drugs, medicaments and biological substances; I25.2 Old myocardial infarction; Z98.51 Tubal ligation status; Z87.891 Personal history of nicotine dependence; Z82.49 Family history of ischemic heart disease and other diseases of the circulatory system; Z80.8 Family history of malignant neoplasm of other organs or systems; Z81.8 Family history of other mental and behavioral disorders; Z83.3 Family history of diabetes mellitus; Z82.5 Family history of asthma and other chronic lower respiratory diseases; Z83.1 Family history of other infectious and parasitic diseases; Z79.899 Other long term (current) drug therapy

== ENCOUNTER 2018-10-12 16:07 | Emergency (ER) | payer OTHER ==
--- NOTE | ~2018-10-12 | EKG ---
[place], [place] ELECTROCARDIOGRAM REPORT NAME: FARHAT LAWLER UNIT #: [id number] ROOM: DOCTOR: EPIPHANY DRAFT REPORT BIRTHDATE: [birth year] [facility] Test Date: 2018-10-12 Test Time: 16:14:12 Pat Name: FARHAT LAWLER Department: Room: Gender: F Hosiery Pairer: : 1950 Requested By: JAQUI SMITH Order Number: [id number] Reading MD: Xochilt Hernández MD Measurements Intervals [place] Rate: 87 P: 57 [place]: 147 QRS: -25 QRSD: 94 T: 46 QT: 354 QTc: 426 Interpretive Statements Sinus rhythm Borderline left axis deviation Compared to ECG 10/06/2018 00:28:21 Atrial premature complex(es) no longer present Myocardial infarct finding no longer present Electronically Signed On 10-14-2018 5:51:44 PDT by Xochilt Hernández MD CM:EKGRPT:ELECTROCARDIOGRAM REPORT [id number] JAQUI AGUILERA DRAFT REPORT JAQUI SMITH DO
[~2018-10-12 16:07] MED LIST changes: +BUSPIRONE HCL15 MG PO; +DOXYCYCLINE100 MG PO; +ERYTHROMYCIN OPH1 GM OPH; +LYRICA200 M1 PO; +MIRTAZAPINE15 M2 PO; +OMEPRAZOLE40 MG PO; +ROPINIROLE HY0.25 MG PO
[2018-10-12 16:35] VITALS: BP 105/69
[2018-10-12 17:02] LABS: BASO % 0.2 % (0.0-1.0); EOS # 0.3 10*3/uL (0.0-0.4); EOS % 2.2 % (1.0-4.0); HEMATOCRIT 37.6 % (37.0-47.0); HEMOGLOBIN 11.8 g/dl (12.0-16.0); LYMPH # 2.4 10*3/uL (1.3-4.4); LYMPH % 18.9 % (27.0-41.0); MEAN CELL VOLUME 89.1 fl (81.0-99.0); MEAN CORPUSCULAR HGB CONC 31.4 g/dl (33.0-37.0); MEAN PLATELET VOLUME 10.6 fl (9.6-12.3); MONO # 0.8 10*3/uL (0.1-1.0); MONO % 6.5 % (3.0-9.0); NEUT # 9.1 10*3/uL (2.3-7.9); NEUT % 71.6 % (47.0-73.0); PLATELET COUNT AUTOMATED 223 10*3/uL (130-400); RED BLOOD COUNT 4.22 10*6/uL (4.10-5.10); RED CELL DISTRI WIDTH 17.4 % (0-14.5); WHITE BLOOD COUNT 12.7 10*3/uL (4.8-10.8)
[2018-10-12 17:17] LABS: ACT PARTIAL THROMBO TIME 24.7 SECONDS (20.0-32.1); INTERNATIONAL NORM RATIO 0.9 (2.0-3.5)
[2018-10-12 17:19] LABS: ALKALINE PHOSPHATASE 55 U/L (45-117); BUN 19 mg/dl (7-24); CHLORIDE 102 mmol/L (98-107); CREATININE 1.23 mg/dL (0.55-1.02); POTASSIUM 3.8 mmol/L (3.5-5.1); SGOT/AST 15 IU/L (3-35); SGPT/ALT 20 U/L (12-78); SODIUM 139 mmol/L (136-145); TOTAL PROTEIN 6.4 gm/dL (6.4-8.2)
[2018-10-12 17:20] LABS: TROPONIN I < 0.015 ng/ml (<0.045)
== END 2018-10-12 19:48 | disposition home or self-care (01) ==
LOC: ED 16:07
PROVIDERS: Family Medicine
DX: R06.02 Shortness of breath (principal); R41.0 Disorientation, unspecified; E11.40 Type 2 diabetes mellitus with diabetic neuropathy, unspecified; E11.22 Type 2 diabetes mellitus with diabetic chronic kidney disease; I13.0 Hypertensive heart and chronic kidney disease with heart failure and stage 1 through stage 4 chronic kidney disease, or unspecified chronic kidney disease; N18.3 Chronic kidney disease, stage 3 (moderate); I50.32 Chronic diastolic (congestive) heart failure; J44.9 Chronic obstructive pulmonary disease, unspecified; E78.2 Mixed hyperlipidemia; E66.01 Morbid (severe) obesity due to excess calories; I25.2 Old myocardial infarction; F17.200 Nicotine dependence, unspecified, uncomplicated; Z88.8 Allergy status to other drugs, medicaments and biological substances; Z79.899 Other long term (current) drug therapy; Z79.2 Long term (current) use of antibiotics

== ENCOUNTER → 2019-01-07 | Outpatient (CLI) | payer OTHER | END | disposition home or self-care (01) | LOC: RAD 11:59 | DX: E11.42 Type 2 diabetes mellitus with diabetic polyneuropathy (principal); K13.0 Diseases of lips; R53.83 Other fatigue; K59.00 Constipation, unspecified; R53.81 Other malaise; R11.2 Nausea with vomiting, unspecified; M48.54XA Collapsed vertebra, not elsewhere classified, thoracic region, initial encounter for fracture ==

== ENCOUNTER 2019-03-31 10:38 | Inpatient (IN) | payer OTHER ==
[~2019-03-31] VITALS: Ht 173 cm; Wt 138.4 kg
[2019-03-31] VITALS (7 sets, daily range): BP systolic 104–155; BP diastolic 51–83
--- NOTE | 2019-03-31 02:34 | NUR ---
PT IS ASLEEP IN BED AT THIS TIME. PRN RESTORIL EFFECTIVE.
[2019-03-31 10:55] LABS: BASO # 0.1 10*3/uL (0.0-0.1); BASO % 0.6 % (0.0-1.0); EOS # 0.3 10*3/uL (0.0-0.4); EOS % 2.2 % (1.0-4.0); HEMOGLOBIN 11.5 g/dl (12.0-16.0); LYMPH # 2.5 10*3/uL (1.3-4.4); LYMPH % 22.1 % (27.0-41.0); MEAN CELL VOLUME 89.8 fl (81.0-99.0); MEAN CORPUSCULAR HGB 27.2 pg (27.0-31.0); MEAN CORPUSCULAR HGB CONC 30.3 g/dl (33.0-37.0); MEAN PLATELET VOLUME 10.6 fl (9.6-12.3); MONO # 0.9 10*3/uL (0.1-1.0); NEUT # 7.5 10*3/uL (2.3-7.9); NEUT % 66.3 % (47.0-73.0); PLATELET COUNT AUTOMATED 275 10*3/uL (130-400); RED BLOOD COUNT 4.23 10*6/uL (4.10-5.10); RED CELL DISTRI WIDTH 19.9 % (0-14.5); WHITE BLOOD COUNT 11.3 10*3/uL (4.8-10.8)
--- NOTE | 2019-03-31 10:57 | NUR ---
FIRST NITRO GIVEN WITH A B/P OF 146/90 C/O PAIN 12/15
[2019-03-31 11:03] LABS: ACT PARTIAL THROMBO TIME 26.9 SECONDS (20.0-32.1); INTERNATIONAL NORM RATIO 0.9 (2.0-3.5)
--- NOTE | 2019-03-31 11:03 | NUR ---
THE FIRST NITRO BROUGHT HER PAIN FROM A 9 TO A 7. SHE IS REFUSING ANY MORE NITRO AT THIS TIME
[2019-03-31 11:10] LABS: ALBUMIN 3.2 gm/dl (3.1-4.5); ALKALINE PHOSPHATASE 67 U/L (45-117); BUN 21 mg/dl (7-24); CHLORIDE 109 mmol/L (98-107); CREATININE 1.32 mg/dL (0.55-1.02); POTASSIUM 4.4 mmol/L (3.5-5.1); SGOT/AST 13 IU/L (3-35); SGPT/ALT 21 U/L (12-78); SODIUM 142 mmol/L (136-145)
[2019-03-31 11:12] LABS: TROPONIN I < 0.015 ng/ml (<0.045)
--- NOTE | 2019-03-31 11:28 | NUR ---
PT MEDICATED PER EMAR FOR PAIN. CONT PULSE OX IN PLACE. 3 LPM NASAL O2 APPLIED. HEAD OF BED LOWERED REQUESTED BY PATIENT FOR COMFORT.
[2019-03-31] MEDS ORDERED: DICLOFENAC SOD75 MG PO (14:39)
[2019-03-31] MEDS ORDERED: MONTELUKAST SOD10 MG PO (14:39)
[2019-03-31] MEDS ORDERED: ZYRTEC10 MG PO (14:40)
--- NOTE | 2019-03-31 22:56 | NUR ---
PT MEDICATED WITH PRN RESTORIL FOR C/O INSOMNIA. WILL MONITOR FOR EFFECTIVENESS.
[2019-04-01] VITALS: BP 122/58
--- NOTE | 2019-04-01 00:45 | NUR ---
PLACED PATIENT ON BIPAP FOR THE NIGHT
--- NOTE | 2019-04-01 03:00 | NUR ---
PT SLEEPING COMFORTABLY IN BED AT THIS TIME. NO S/S OF DISTRESS NOTED. RESPS ARE EASY AND NONLABORED. WILL CONTINUE TO MONITOR.
[2019-04-01 06:47] LABS: BASO % 0.2 % (0.0-1.0); HEMATOCRIT 36.4 % (37.0-47.0); HEMOGLOBIN 11.3 g/dl (12.0-16.0); LYMPH # 1.2 10*3/uL (1.3-4.4); LYMPH % 9.3 % (27.0-41.0); MEAN CORPUSCULAR HGB 26.6 pg (27.0-31.0); MEAN PLATELET VOLUME 10.7 fl (9.6-12.3); MONO # 0.2 10*3/uL (0.1-1.0); MONO % 1.4 % (3.0-9.0); NEUT # 10.8 10*3/uL (2.3-7.9); NEUT % 86.9 % (47.0-73.0); PLATELET COUNT AUTOMATED 271 10*3/uL (130-400); RED BLOOD COUNT 4.25 10*6/uL (4.10-5.10); RED CELL DISTRI WIDTH 19.5 % (0-14.5); WHITE BLOOD COUNT 12.4 10*3/uL (4.8-10.8)
[2019-04-01 06:51] LABS: MEAN CELL VOLUME 85.6 fl (81.0-99.0)
[2019-04-01 07:11] LABS: ALBUMIN 3.2 gm/dl (3.1-4.5); CREATININE 1.24 mg/dL (0.55-1.02); FREE T4 0.95 ng/dl (0.76-1.46); PHOSPHOROUS 2.7 mg/dL (2.5-4.9); POTASSIUM 4.2 mmol/L (3.5-5.1); TOTAL PROTEIN 7.3 gm/dL (6.4-8.2)
[2019-04-01 07:16] LABS: THYROID STIM HORMONE (HS) 0.744 uIU/ml (0.358-4.75)
[2019-04-01 08:00] VITALS: BP 144/80
[2019-04-01 08:44] LABS: VITAMIN D, 25-HYDROXY 31.6 ng/mL (30-100)
--- NOTE | 2019-04-01 09:00 | NUR ---
Puppy Sitter in to talk to patient. Patient states lives at home with granddaughter. There are few steps in the home. Physician: natali carpenter Pharmacy: [facility] Home health services: none Patient's level of ADLs: INDEPENDENT Patient has working utilities: all working DME: home oxygen, portable tanks from [facility] Follow-up physician's appointment after d/c: will be made by hospitalist nurse director upon discharge Does patient want to access PORTAL?: no Discharge plan discussed she lives at home with granddaughter, she states she is independent in adls and ambulation, has home oxygen and portable tanks, she states she will return home when medically stable and denies any home needs. NOLAN MAI
--- NOTE | 2019-04-01 09:42 | NUR ---
PT STATES THAT SHE HAS A HEAD ACHE AND ARM/SHOULDER PAIN AND RATES IT A 7/10 AND IS REQUESTING SOMETHING FOR THE PAIN. PO NORCO IS GIVEN AT THIS TIME. WILL CONTINUE TO MONITOR THE PATIENT. CALL LIGHT WITHIN REACH
--- NOTE | 2019-04-01 10:11 | NUR ---
CONTACTED [facility] AND THEY ARE FAXING OVER AN [employer] MED LIST OF THE PATIENT.
--- NOTE | 2019-04-01 11:33 | NUR ---
HI IS RE-EVALUATED AT THIS TIME AND STAES THAT HER HEADACHE IS BETTER AND THAST HER PAIN HAS DECRESED TOO/ WILL CONTINUE TO MONITOR. CALL LIGHT WITHIN REACH
[2019-04-01 12:00] VITALS: BP 132/86
--- NOTE | 2019-04-01 13:02 | NUR ---
ATTEMPTED TO CALL DR. SMITH AND THERE WAS NO ANSWER. WILL TRY BACK
--- NOTE | 2019-04-01 13:03 | NUR ---
DR SMITH ON THE FLOOR AND STATES HE WILL PUT THE ORDERS IN FOR THE PATIENT.
--- NOTE | 2019-04-01 13:16 | NUR ---
PT STATES SHE IS HAVING A HEADACHE AND PAIN INTO HER ARMS AND SHOULDER. PT STATES THAT HER PAIN 8/10 AND IS REQUESTING SOMETHING FOR PAIN. IV MORPHINE IS GIVEN AT THIS TIME. WILL CONTINUE TO MONITOR THE PATIENT. CALL LIGHT WITHIN REACH
--- NOTE | 2019-04-01 14:53 | NUR ---
Shift chart check completed.
[2019-04-01 16:00] VITALS: BP 134/81
--- NOTE | 2019-04-01 19:00 | NUR ---
ASSUMED CARE FOR THIS PT AT THIS TIME. PT RESTING QUIETLY IN BED. CALL LIGHT IN REACH.
[2019-04-01 20:00] VITALS: BP 134/73
[2019-04-02] VITALS: BP 144/72
[2019-04-02 06:42] LABS: BASO % 0.2 % (0.0-1.0); EOS % 0.1 % (1.0-4.0); HEMATOCRIT 34.9 % (37.0-47.0); LYMPH # 1.4 10*3/uL (1.3-4.4); LYMPH % 10.7 % (27.0-41.0); MEAN CELL VOLUME 86.4 fl (81.0-99.0); MEAN CORPUSCULAR HGB 27.2 pg (27.0-31.0); MEAN CORPUSCULAR HGB CONC 31.5 g/dl (33.0-37.0); MEAN PLATELET VOLUME 10.7 fl (9.6-12.3); MONO # 0.5 10*3/uL (0.1-1.0); NEUT # 11.1 10*3/uL (2.3-7.9); NEUT % 83.6 % (47.0-73.0); PLATELET COUNT AUTOMATED 263 10*3/uL (130-400); RED BLOOD COUNT 4.04 10*6/uL (4.10-5.10); RED CELL DISTRI WIDTH 19.9 % (0-14.5); WHITE BLOOD COUNT 13.2 10*3/uL (4.8-10.8)
[2019-04-02 07:01] LABS: CREATININE 1.22 mg/dL (0.55-1.02); POTASSIUM 4.5 mmol/L (3.5-5.1)
[2019-04-02 08:00] VITALS: BP 142/78
--- NOTE | 2019-04-02 09:00 | NUR ---
case management visits with patient, she states she will return home when medically stable and denies any home needs, case management will follow
--- NOTE | 2019-04-02 10:08 | NUR ---
PT STATES THAT SHE IS IN PAIN IN HER SHOULDERS RATING IT A 6/10. PO NORCO IS GIVEN AT THIS TIME. WILL CONTINUE TO MONITOR
--- NOTE | 2019-04-02 10:40 | NUR ---
PT SATES THAT HER PAIN HAS DECREASED SINCE TAKING HER MEDICATION. WILL CONTINUE TO MONITOR
[2019-04-02] MEDS ORDERED: LEVAQUIN750 M1 PO (11:41)
[2019-04-02] MEDS ORDERED: PREDNISONE10 MG PO (11:41)
[2019-04-02] MEDS ORDERED: MUCINEX ER600 MG PO (11:41)
--- NOTE | 2019-04-02 11:55 | NUR ---
ASSESSED FOR HOME O2 FOLLOWS: SAT 88 RA AT REST HR 70 BP 122/73 2L/M NC APPLIED AND SAT TO 93% REST SAT 88% WITH 2L/M APPLIED DURING AMBULATION SAT 92%-93% WITH 3L/M APPLIED DURING AMBULATION RECOVERY SAT IS 95% WITH 3L/M O2 HR 67 BP 144/78 RN NOTIFIED. PT STATES SHE HAS HOME O2 WITH [facility]. STATES SHE USES 2-3L/M WHEN NEEDED, STATES SHE HAS PORTABLE TANK. STATES SHE USES O2 WITH HER BIPAP. WILL CALL TO VERIFY [facility] TO VERIFY. WILL NOTIFY
--- NOTE | 2019-04-02 15:39 | NUR ---
REMOVED IV, TOOK OFF JORDAN WORKER. WENT OVER DISCHARGE INSTRUCTIONS WITH THE PATIENT AND SHE VERBALIZES AGREEMENT. PT IS LEAVING FLOOR AT THIS TIME.
== END 2019-04-02 16:24 | disposition home or self-care (01) | DRG 190 ==
LOC: ED 10:38 → 4E 12:22 → EDHOLD 12:22 → 4E 13:46
PROVIDERS: Emergency Medicine; Hospitalist; ADMIT Family Medicine
DX: J44.0 Chronic obstructive pulmonary disease with (acute) lower respiratory infection (principal); J18.9 Pneumonia, unspecified organism; I13.0 Hypertensive heart and chronic kidney disease with heart failure and stage 1 through stage 4 chronic kidney disease, or unspecified chronic kidney disease; I50.32 Chronic diastolic (congestive) heart failure; J96.10 Chronic respiratory failure, unspecified whether with hypoxia or hypercapnia; Z68.42 Body mass index [BMI] 45.0-49.9, adult; E87.8 Other disorders of electrolyte and fluid balance, not elsewhere classified; F32.9 Major depressive disorder, single episode, unspecified; F17.210 Nicotine dependence, cigarettes, uncomplicated; F41.1 Generalized anxiety disorder; E66.01 Morbid (severe) obesity due to excess calories; G47.33 Obstructive sleep apnea (adult) (pediatric); G62.9 Polyneuropathy, unspecified; I71.4 Abdominal aortic aneurysm, without rupture; E78.2 Mixed hyperlipidemia; N18.3 Chronic kidney disease, stage 3 (moderate); Z88.8 Allergy status to other drugs, medicaments and biological substances; Z87.01 Personal history of pneumonia (recurrent); Z98.51 Tubal ligation status; Z82.49 Family history of ischemic heart disease and other diseases of the circulatory system; Z80.42 Family history of malignant neoplasm of prostate; Z83.3 Family history of diabetes mellitus; Z81.8 Family history of other mental and behavioral disorders; Z84.89 Family history of other specified conditions; Z79.899 Other long term (current) drug therapy

== ENCOUNTER 2019-04-11 10:27 | Inpatient (IN) | payer OTHER ==
[~2019-04-11] VITALS: Ht 175.2 cm; Wt 136.6 kg
[~2019-04-11 10:27] MED LIST changes: +DICLOFENAC SOD75 MG PO; +LEVAQUIN750 M1 PO; +MONTELUKAST SOD10 MG PO; +ZYRTEC10 MG PO
[2019-04-11 10:31] VITALS: BP 110/65
[2019-04-11 11:11] LABS: BASO # 0.1 10*3/uL (0.0-0.1); BASO % 0.3 % (0.0-1.0); EOS # 0.2 10*3/uL (0.0-0.4); EOS % 1.6 % (1.0-4.0); HEMATOCRIT 35.8 % (37.0-47.0); HEMOGLOBIN 11.2 g/dl (12.0-16.0); LYMPH # 2.5 10*3/uL (1.3-4.4); LYMPH % 16.5 % (27.0-41.0); MEAN CELL VOLUME 87.3 fl (81.0-99.0); MEAN CORPUSCULAR HGB 27.3 pg (27.0-31.0); MEAN CORPUSCULAR HGB CONC 31.3 g/dl (33.0-37.0); MEAN PLATELET VOLUME 10.3 fl (9.6-12.3); MONO # 1.3 10*3/uL (0.1-1.0); MONO % 8.9 % (3.0-9.0); NEUT # 10.7 10*3/uL (2.3-7.9); NEUT % 71.2 % (47.0-73.0); PLATELET COUNT AUTOMATED 265 10*3/uL (130-400); RED CELL DISTRI WIDTH 20.2 % (0-14.5)
[2019-04-11 11:23] LABS: ACT PARTIAL THROMBO TIME 28.1 SECONDS (20.0-32.1); INTERNATIONAL NORM RATIO 0.9 (2.0-3.5)
[2019-04-11 11:30] VITALS: BP 114/69
[2019-04-11 11:31] LABS: ALBUMIN 2.9 gm/dl (3.1-4.5); ALKALINE PHOSPHATASE 61 U/L (45-117); BUN 20 mg/dl (7-24); CHLORIDE 107 mmol/L (98-107); CREATININE 1.19 mg/dL (0.55-1.02); POTASSIUM 3.8 mmol/L (3.5-5.1); SGOT/AST 11 IU/L (3-35); SGPT/ALT 21 U/L (12-78); SODIUM 140 mmol/L (136-145); TOTAL PROTEIN 6.7 gm/dL (6.4-8.2)
[2019-04-11 11:32] LABS: TROPONIN I < 0.015 ng/ml (<0.045)
[2019-04-11 12:49] VITALS: BP 135/72
[2019-04-11 13:50] LABS: URIC ACID 7.3 mg/dL (2.6-6.0)
[2019-04-11 14:25] VITALS: BP 115/56
[2019-04-11 16:00] VITALS: BP 123/66
[2019-04-11 20:00] VITALS: BP 122/71
[2019-04-12] VITALS: BP 106/44
[2019-04-12 03:25] VITALS: BP 135/62
[2019-04-12 06:21] LABS: BASO # 0.1 10*3/uL (0.0-0.1); BASO % 0.4 % (0.0-1.0); EOS # 0.1 10*3/uL (0.0-0.4); EOS % 1.1 % (1.0-4.0); HEMOGLOBIN 10.6 g/dl (12.0-16.0); LYMPH # 2.5 10*3/uL (1.3-4.4); LYMPH % 20.2 % (27.0-41.0); MEAN CELL VOLUME 86.7 fl (81.0-99.0); MEAN CORPUSCULAR HGB CONC 31.2 g/dl (33.0-37.0); MEAN PLATELET VOLUME 10.4 fl (9.6-12.3); MONO # 1.2 10*3/uL (0.1-1.0); MONO % 10.1 % (3.0-9.0); NEUT # 8.2 10*3/uL (2.3-7.9); NEUT % 66.6 % (47.0-73.0); PLATELET COUNT AUTOMATED 240 10*3/uL (130-400); RED BLOOD COUNT 3.92 10*6/uL (4.10-5.10); RED CELL DISTRI WIDTH 19.9 % (0-14.5); WHITE BLOOD COUNT 12.3 10*3/uL (4.8-10.8)
[2019-04-12 06:43] LABS: ALBUMIN 2.7 gm/dl (3.1-4.5); ALKALINE PHOSPHATASE 53 U/L (45-117); BUN 13 mg/dl (7-24); CHLORIDE 107 mmol/L (98-107); CREATININE 1.06 mg/dL (0.55-1.02); PHOSPHOROUS 2.8 mg/dL (2.5-4.9); POTASSIUM 3.8 mmol/L (3.5-5.1); SGOT/AST 9 IU/L (3-35); SGPT/ALT 16 U/L (12-78); SODIUM 139 mmol/L (136-145); TOTAL PROTEIN 6.1 gm/dL (6.4-8.2)
[2019-04-12 08:00] VITALS: BP 98/50
[2019-04-12 12:00] VITALS: BP 127/68
[2019-04-12] MEDS ORDERED: ALLOPURINOL100 MG PO (13:35)
[2019-04-12] MEDS ORDERED: NYSTATIN1 EAC3 MC (13:35)
== END 2019-04-12 15:04 | disposition home or self-care (01) | DRG 554 ==
LOC: ED 10:27 → EDHOLD 12:25 → 5E 12:25 → EDHOLD 13:06 → 5E 13:06
PROVIDERS: Emergency Medicine; Registered Nurse; ADMIT Family Medicine
DX: M10.9 Gout, unspecified (principal); I50.32 Chronic diastolic (congestive) heart failure; J96.12 Chronic respiratory failure with hypercapnia; I13.0 Hypertensive heart and chronic kidney disease with heart failure and stage 1 through stage 4 chronic kidney disease, or unspecified chronic kidney disease; E44.0 Moderate protein-calorie malnutrition; Z68.41 Body mass index [BMI] 40.0-44.9, adult; R07.89 Other chest pain; N18.3 Chronic kidney disease, stage 3 (moderate); J44.9 Chronic obstructive pulmonary disease, unspecified; G47.33 Obstructive sleep apnea (adult) (pediatric); E11.65 Type 2 diabetes mellitus with hyperglycemia; E11.22 Type 2 diabetes mellitus with diabetic chronic kidney disease; F41.1 Generalized anxiety disorder; E78.2 Mixed hyperlipidemia; D72.829 Elevated white blood cell count, unspecified; G25.81 Restless legs syndrome; E66.01 Morbid (severe) obesity due to excess calories; F17.210 Nicotine dependence, cigarettes, uncomplicated; F32.9 Major depressive disorder, single episode, unspecified; Z99.81 Dependence on supplemental oxygen; I25.2 Old myocardial infarction; Z98.51 Tubal ligation status; Z80.42 Family history of malignant neoplasm of prostate; Z82.49 Family history of ischemic heart disease and other diseases of the circulatory system; Z88.8 Allergy status to other drugs, medicaments and biological substances; Z79.899 Other long term (current) drug therapy

== ENCOUNTER 2019-04-29 15:36 | Inpatient (IN) | payer OTHER ==
[~2019-04-29] VITALS: Ht 175.2 cm; Wt 143.1 kg
[~2019-04-29 15:36] MED LIST changes: +ALLOPURINOL100 MG PO; +NYSTATIN1 EAC3 MC
[2019-04-29 15:38] VITALS: BP 87/52; BP 91/48
[2019-04-29 16:16] LABS: BASO % 0.2 % (0.0-1.0); EOS # 0.2 10*3/uL (0.0-0.4); EOS % 1.6 % (1.0-4.0); HEMATOCRIT 35.8 % (37.0-47.0); HEMOGLOBIN 10.7 g/dl (12.0-16.0); LYMPH # 1.9 10*3/uL (1.3-4.4); MEAN CELL VOLUME 88.4 fl (81.0-99.0); MEAN CORPUSCULAR HGB 26.4 pg (27.0-31.0); MEAN CORPUSCULAR HGB CONC 29.9 g/dl (33.0-37.0); MEAN PLATELET VOLUME 9.8 fl (9.6-12.3); MONO # 1.1 10*3/uL (0.1-1.0); MONO % 10.7 % (3.0-9.0); NEUT # 7.2 10*3/uL (2.3-7.9); NEUT % 68.6 % (47.0-73.0); PLATELET COUNT AUTOMATED 327 10*3/uL (130-400); RED BLOOD COUNT 4.05 10*6/uL (4.10-5.10); RED CELL DISTRI WIDTH 19.4 % (0-14.5); WHITE BLOOD COUNT 10.5 10*3/uL (4.8-10.8)
[2019-04-29 16:24] VITALS: BP 89/55
[2019-04-29 16:26] LABS: ACT PARTIAL THROMBO TIME 28.2 SECONDS (20.0-32.1)
[2019-04-29 16:30] LABS: ALBUMIN 2.6 gm/dl (3.1-4.5); ALKALINE PHOSPHATASE 63 U/L (45-117); BUN 23 mg/dl (7-24); CHLORIDE 107 mmol/L (98-107); CREATININE 1.47 mg/dL (0.55-1.02); LIPASE 69 U/L (73-393); POTASSIUM 4.2 mmol/L (3.5-5.1); SGOT/AST 11 IU/L (3-35); SGPT/ALT 14 U/L (12-78); SODIUM 139 mmol/L (136-145); TOTAL PROTEIN 6.7 gm/dL (6.4-8.2)
[2019-04-29 16:38] LABS: TROPONIN I < 0.015 ng/ml (<0.045)
[2019-04-29 17:38] VITALS: BP 97/58
[2019-04-29 18:07] VITALS: BP 110/68
[2019-04-29 18:31] LABS: BILIRUBIN NEGATIVE (NEGATIVE); CLARITY CLEAR (CLEAR); COLOR YELLOW (YELLOW); GLUCOSE NEGATIVE (NEGATIVE); KETONE NEGATIVE (NEGATIVE)
[2019-04-29 18:32] LABS: BLOOD NEGATIVE (NEGATIVE); LEUKO ESTERASE NEGATIVE (NEGATIVE); NITRITE NEGATIVE (NEGATIVE); UROBILINOGEN 0.2 E.U./dl (0.2-1.0)
[2019-04-29 18:39] LABS: BACTERIA 1+; EPITHELIAL CELLS 21-30; WBC 0-2 wbc/hpf (0-5)
[2019-04-29 23:23] VITALS: BP 100/60
[2019-04-29] MEDS ORDERED: FUROSEMIDE40 MG PO (23:51)
[2019-04-29] MEDS ORDERED: MONTELUKAST SOD10 MG PO (23:51)
[2019-04-29] MEDS ORDERED: POTASSIUM CHLO20 ME4 PO (23:51)
[2019-04-29] MEDS ORDERED: DICLOFENAC SOD100 G1 T (23:52)
[2019-04-30 06:48] LABS: BASO % 0.2 % (0.0-1.0); HEMATOCRIT 35.5 % (37.0-47.0); HEMOGLOBIN 10.7 g/dl (12.0-16.0); LYMPH % 11.2 % (27.0-41.0); MEAN CORPUSCULAR HGB 26.8 pg (27.0-31.0); MEAN CORPUSCULAR HGB CONC 30.1 g/dl (33.0-37.0); MEAN PLATELET VOLUME 10.2 fl (9.6-12.3); MONO # 0.1 10*3/uL (0.1-1.0); MONO % 0.8 % (3.0-9.0); NEUT # 7.4 10*3/uL (2.3-7.9); NEUT % 86.6 % (47.0-73.0); PLATELET COUNT AUTOMATED 325 10*3/uL (130-400); RED BLOOD COUNT 3.99 10*6/uL (4.10-5.10); WHITE BLOOD COUNT 8.6 10*3/uL (4.8-10.8)
[2019-04-30 07:08] LABS: ALBUMIN 2.7 gm/dl (3.1-4.5); CREATININE 1.3 mg/dL (0.55-1.02); POTASSIUM 4.2 mmol/L (3.5-5.1); TOTAL PROTEIN 6.8 gm/dL (6.4-8.2)
[2019-04-30 08:00] VITALS: BP 131/76
[2019-04-30 10:00] VITALS: BP 131/76
[2019-04-30 12:00] VITALS: BP 127/63
[2019-04-30 16:00] VITALS: BP 134/88
[2019-04-30 20:00] VITALS: BP 128/76
[2019-05-01] VITALS: BP 149/89
[2019-05-01 05:26] LABS: BUN 20 mg/dl (7-24); CHLORIDE 109 mmol/L (98-107); CREATININE 0.99 mg/dL (0.55-1.02); POTASSIUM 4.6 mmol/L (3.5-5.1); SODIUM 142 mmol/L (136-145)
[2019-05-01 05:49] LABS: BASO % 0.1 % (0.0-1.0); HEMATOCRIT 33.8 % (37.0-47.0); HEMOGLOBIN 10.1 g/dl (12.0-16.0); LYMPH # 1.5 10*3/uL (1.3-4.4); LYMPH % 10.1 % (27.0-41.0); MEAN CELL VOLUME 88.3 fl (81.0-99.0); MEAN CORPUSCULAR HGB 26.4 pg (27.0-31.0); MEAN CORPUSCULAR HGB CONC 29.9 g/dl (33.0-37.0); MEAN PLATELET VOLUME 10.5 fl (9.6-12.3); MONO # 0.9 10*3/uL (0.1-1.0); MONO % 5.6 % (3.0-9.0); NEUT # 12.5 10*3/uL (2.3-7.9); NEUT % 82.9 % (47.0-73.0); PLATELET COUNT AUTOMATED 335 10*3/uL (130-400); RED BLOOD COUNT 3.83 10*6/uL (4.10-5.10); RED CELL DISTRI WIDTH 18.7 % (0-14.5); WHITE BLOOD COUNT 15.1 10*3/uL (4.8-10.8)
[2019-05-01 08:00] VITALS: BP 149/85
[2019-05-01 12:00] VITALS: BP 132/70
[2019-05-01 16:00] VITALS: BP 119/67
[2019-05-01 20:00] VITALS: BP 101/68
[2019-05-02] VITALS: BP 147/80
[2019-05-02 05:45] LABS: HEMATOCRIT 33.6 % (37.0-47.0); HEMOGLOBIN 10.1 g/dl (12.0-16.0); MEAN CELL VOLUME 88.4 fl (81.0-99.0); MEAN CORPUSCULAR HGB 26.6 pg (27.0-31.0); MEAN CORPUSCULAR HGB CONC 30.1 g/dl (33.0-37.0); MEAN PLATELET VOLUME 10.2 fl (9.6-12.3); PLATELET COUNT AUTOMATED 327 10*3/uL (130-400); RED CELL DISTRI WIDTH 18.8 % (0-14.5); WHITE BLOOD COUNT 12.8 10*3/uL (4.8-10.8)
[2019-05-02 06:01] LABS: BUN 21 mg/dl (7-24); CHLORIDE 110 mmol/L (98-107); CREATININE 1.01 mg/dL (0.55-1.02); POTASSIUM 4.8 mmol/L (3.5-5.1); SODIUM 142 mmol/L (136-145)
[2019-05-02 07:57] LABS: TOTAL CELLS COUNTED 100 #CELLS
[2019-05-02 07:58] LABS: PLATELET SUFFICIENCY NORMAL (NORMAL)
[2019-05-02 08:00] VITALS: BP 153/87
[2019-05-02 12:00] VITALS: BP 153/94
[2019-05-02] MEDS ORDERED: PREDNISONE10 MG PO (12:08)
== END 2019-05-02 15:18 | disposition home health service (06) | DRG 682 ==
LOC: ED 15:36 → EDHOLD 18:26 → 4E 18:26
PROVIDERS: Emergency Medicine; Family Medicine; Internal Medicine; Student in an Organized Health Care Education/Training Program; ADMIT Internal Medicine
PROC: 5A09357 Assistance with Respiratory Ventilation, Less than 24 Consecutive Hours, Continuous Positive Airway Pressure (ICD-10-PCS; principal; 2019-05-02)
DX: N17.0 Acute kidney failure with tubular necrosis (principal); J18.9 Pneumonia, unspecified organism; E43 Unspecified severe protein-calorie malnutrition; I13.0 Hypertensive heart and chronic kidney disease with heart failure and stage 1 through stage 4 chronic kidney disease, or unspecified chronic kidney disease; I50.32 Chronic diastolic (congestive) heart failure; Z68.41 Body mass index [BMI] 40.0-44.9, adult; J96.11 Chronic respiratory failure with hypoxia; E86.0 Dehydration; R53.1 Weakness; D64.9 Anemia, unspecified; R79.82 Elevated C-reactive protein (CRP); R70.0 Elevated erythrocyte sedimentation rate; R82.71 Bacteriuria; G47.33 Obstructive sleep apnea (adult) (pediatric); J43.9 Emphysema, unspecified; N18.3 Chronic kidney disease, stage 3 (moderate); E55.9 Vitamin D deficiency, unspecified; E11.65 Type 2 diabetes mellitus with hyperglycemia; E11.22 Type 2 diabetes mellitus with diabetic chronic kidney disease; F41.1 Generalized anxiety disorder; E11.40 Type 2 diabetes mellitus with diabetic neuropathy, unspecified; F32.9 Major depressive disorder, single episode, unspecified; M10.9 Gout, unspecified; G25.81 Restless legs syndrome; I95.9 Hypotension, unspecified; E78.2 Mixed hyperlipidemia; E66.01 Morbid (severe) obesity due to excess calories; I25.2 Old myocardial infarction; Z98.51 Tubal ligation status; Z87.891 Personal history of nicotine dependence; Z80.42 Family history of malignant neoplasm of prostate; Z82.49 Family history of ischemic heart disease and other diseases of the circulatory system; Z84.89 Family history of other specified conditions; Z88.8 Allergy status to other drugs, medicaments and biological substances; Z79.899 Other long term (current) drug therapy

== ENCOUNTER 2019-08-19 20:13 | Inpatient (IN) | payer OTHER ==
[~2019-08-19] VITALS: Ht 172.7 cm; Wt 138.1 kg
[~2019-08-19 20:13] MED LIST changes: +DICLOFENAC SOD100 G1 T; +FUROSEMIDE40 MG PO; +POTASSIUM CHLO20 ME4 PO
[2019-08-19 20:29] VITALS: BP 167/94
[2019-08-19 20:44] LABS: BASO # 0.1 10*3/uL (0.0-0.1); BASO % 0.5 % (0.0-1.0); EOS # 0.3 10*3/uL (0.0-0.4); EOS % 3.2 % (1.0-4.0); HEMATOCRIT 34.8 % (37.0-47.0); LYMPH # 1.9 10*3/uL (1.3-4.4); LYMPH % 18.7 % (27.0-41.0); MEAN CELL VOLUME 87.9 fl (81.0-99.0); MEAN CORPUSCULAR HGB 25.5 pg (27.0-31.0); MEAN PLATELET VOLUME 10.1 fl (9.6-12.3); MONO # 0.9 10*3/uL (0.1-1.0); MONO % 8.5 % (3.0-9.0); NEUT # 6.8 10*3/uL (2.3-7.9); NEUT % 68.6 % (47.0-73.0); PLATELET COUNT AUTOMATED 261 10*3/uL (130-400); RED BLOOD COUNT 3.96 10*6/uL (4.10-5.10); RED CELL DISTRI WIDTH 18.6 % (0-14.5)
[2019-08-19 20:54] LABS: ACT PARTIAL THROMBO TIME 27.4 SECONDS (20.0-32.1)
[2019-08-19 20:59] LABS: ALKALINE PHOSPHATASE 65 U/L (45-117); BUN 14 mg/dl (7-24); CHLORIDE 106 mmol/L (98-107); CREATININE 1.15 mg/dL (0.55-1.02); POTASSIUM 4.1 mmol/L (3.5-5.1); SGOT/AST 12 IU/L (3-35); SGPT/ALT 16 U/L (12-78); SODIUM 143 mmol/L (136-145); TOTAL PROTEIN 6.7 gm/dL (6.4-8.2)
[2019-08-19 21:01] LABS: TROPONIN I < 0.015 ng/ml (<0.045)
[2019-08-19 21:27] VITALS: BP 117/51
--- NOTE | 2019-08-19 22:25 | NUR ---
PT ASSISTED TO RESTROOM.PT REPORTS INCREASED SOB AFTER EXERTION.MD NOTIFIED.
--- NOTE | 2019-08-19 22:28 | NUR ---
PT DENIES ANY KNOWN WOUNDS SORES OR CUTS AT THIS TIME.
[2019-08-19 22:58] VITALS: BP 101/61
--- NOTE | 2019-08-19 22:58 | NUR ---
PHOTO TAKEN OF 2 SMALL ALDAIR OPEN AREAS ON PT COCCYX.
--- NOTE | 2019-08-19 23:01 | NUR ---
PT ASSISTED ON AND OFF BEDSIDE TOILET.PT REPOSITIONED IN BED.PT PROVIDED GINGERALE AND WARM BLANKET.
--- NOTE | 2019-08-19 23:33 | NUR ---
PT HAD ADDITIONAL 600CC URINE OUTPUT.
--- NOTE | 2019-08-19 23:45 | NUR ---
PT AWAITING TRANSFER TO UNIT.
--- NOTE | 2019-08-19 23:45 | NUR ---
SECOND EKG COMPLETED.
--- NOTE | 2019-08-19 23:48 | NUR ---
PT ASSISTED UP TO BEDSIDE COMMODE.
--- NOTE | 2019-08-19 23:52 | NUR ---
PT ASSISTED BACK TO BED AND PLACED BACK ON MONITORING. 400CC CLEAR URINE OUTPUT
[2019-08-19] MEDS ORDERED: PROAIR HFA8.5 GM INH (23:57)
[2019-08-19] MEDS ORDERED: ALLOPURINOL100 MG PO (23:58)
[2019-08-20] VITALS: BP 132/76
[2019-08-20] MEDS ORDERED: ASPIRIN ADULT L81 M2 PO
[2019-08-20 00:10] VITALS: BP 132/76
--- NOTE | 2019-08-20 00:12 | NUR ---
A 69, admitted to 5E, under the services of WAN Mensah DO with a diagnosis of CHF EXACERBATION. Chief complaint is SOB. Patient arrived via bed from ER. Monitor applied. Initial assessment completed. Vital signs taken and recorded. WAN MENSAH DO notified of admission to the unit. Orders received. See assessment for past medical history, medications and allergies. PatienT oriented to unit. Clothing/patient valuable form completed. VIRGEN LAKE
--- NOTE | 2019-08-20 00:38 | NUR ---
INFORMED THAT HOME MEDICATIONS ARE VERIFIED. ALSO INFORMED OF WOUND TO COCCYX, STATED OK.
--- NOTE | 2019-08-20 01:00 | NUR ---
PATIENT STATED THAT SHE ALREADY TOOK NIGHT TIME MEDICATIONS PRIOR TO COMING IN ER. STATED SHE DID NEED HER NORCO.
--- NOTE | 2019-08-20 01:00 | NUR ---
FINGERSTICK BGM 140. SSI NOT NEEDED PER ORDERS.
--- NOTE | 2019-08-20 01:13 | NUR ---
PATIENT MEDICATED WITH NORCO FOR C/O BACK PAIN 11/14. WILL MONITOR
--- NOTE | 2019-08-20 02:13 | NUR ---
NOROC EFFECTIVE PER PATIENT
--- NOTE | 2019-08-20 04:00 | NUR ---
PATIENT ASLEEP, EYES CLOSED. NO DISTRESS NOTED. CALL LIGHT WITHIN REACH
--- NOTE | 2019-08-20 05:23 | NUR ---
FARHAT LAWLER [id number] Please refer to the physician's history and physical for past medical history, comorbid conditions, and allergies. Diagnosis: FLUID OVERLOAD Sean Score: 16,AT RISK WOUND DESCRIPTIONS: Wound Number: 1 Location of the wound: coccyx Type of wound: stage 2 Thickness: Partial Size: 1.5cm x 0.2cm x 0.1cm Tunneling: none Undermining: none Sinus Tract: none Presence of Exudate: Serous Amount: Light Color: Red Odor: None Periwound Skin Appearance: Normal Wound edges: approximated Pain (associated with wound): none at time of assessment How does patient state this happened? pt stated this has been going on for a couple of months Surface the patient is resting on: Isoflex SKIN PREVENTION RECOMMENDATION: 1. Pressure redistribution support surface as appropriate 2. Elevate heels 3. Remove boots/TEDS every shift and reapply 4. Head of bed 30 degrees as tolerated 5. Assess nutrition and hydration 6. Manage moisture 7. Avoid the use of containment devices while in bed 8. Use absorptive products on surfaces limit layers of linens on bed 9. Turn and reposition every 1-2 hours in bed and every 1 hour in chair as tolerated 10. Weight shifts every 15 minutes while up in chair 11. Offloading with pillows or device to keep heels elevated off bed 12. Monitor skin at least every shift 13. Inspect under medical devices twice a day WOUND TREATMENT RECOMMENDATIONS: Cleanse coccyx with soap and water and apply calazime every shift and prn for soiling Wheelchair cushion when oob. Patient states she will continue to care for these areas when she is discharged home and doesn't need to follow in an outpatient setting at this time
[2019-08-20 07:23] LABS: BASO # 0.1 10*3/uL (0.0-0.1); BASO % 0.5 % (0.0-1.0); EOS # 0.3 10*3/uL (0.0-0.4); EOS % 3.1 % (1.0-4.0); HEMATOCRIT 34.4 % (37.0-47.0); LYMPH # 1.9 10*3/uL (1.3-4.4); LYMPH % 18.2 % (27.0-41.0); MEAN CELL VOLUME 87.1 fl (81.0-99.0); MEAN CORPUSCULAR HGB 25.3 pg (27.0-31.0); MEAN CORPUSCULAR HGB CONC 29.1 g/dl (33.0-37.0); MEAN PLATELET VOLUME 10.3 fl (9.6-12.3); MONO # 0.9 10*3/uL (0.1-1.0); MONO % 8.6 % (3.0-9.0); NEUT # 7.2 10*3/uL (2.3-7.9); NEUT % 69.1 % (47.0-73.0); PLATELET COUNT AUTOMATED 254 10*3/uL (130-400); RED BLOOD COUNT 3.95 10*6/uL (4.10-5.10); RED CELL DISTRI WIDTH 18.6 % (0-14.5); WHITE BLOOD COUNT 10.4 10*3/uL (4.8-10.8)
--- NOTE | 2019-08-20 07:33 | NUR ---
Dr. Pedroza notified of wound care recommendations.
[2019-08-20 08:00] VITALS: BP 132/77
[2019-08-20 08:06] LABS: BUN 13 mg/dl (7-24); CHLORIDE 102 mmol/L (98-107); CREATININE 0.98 mg/dL (0.55-1.02); POTASSIUM 3.4 mmol/L (3.5-5.1); SODIUM 142 mmol/L (136-145)
--- NOTE | 2019-08-20 09:07 | NUR ---
PATIENT MEDICATED WITH PO NORCO AT THIS TIME FOR COMPLAINTS OF 8/10 BACK AND FEET PAIN. WILL MONITOR.
--- NOTE | 2019-08-20 10:07 | NUR ---
PER PATIENT, PAIN MEDICATION HAS BEEN EFFECTIVE. DENIES DURTHER COMPLAINTS.
--- NOTE | 2019-08-20 11:00 | NUR ---
Occupational Therapy evaluation completed on four with full evaluation to follow. Recommend occupational therapy per plan of care and SNF upon discharge. Thank you for this referral. Elsie Cason OTR/L
[2019-08-20 12:00] VITALS: BP 132/53
[2019-08-20 12:16] LABS: ABG BASE EXCESS 6.3 mmol/L (-2.0-2.0); ARTERIAL BLOOD GAS PH 7.4 (7.35-7.45)
--- NOTE | 2019-08-20 14:07 | NUR ---
Physical Therapy evaluation completed on 5th floor with full evaluation to follow. Recommend physical therapy per plan of care would benefit from SNF upon discharge pending progress with activity as limted activity at this time. Only OOB transfers at this time due to fatigue and 02 levesl dropping with activity 86-87% on 3L MD increased to 4L in room sats varying 90-94% with minimal activity of only OOB tranfers to BSC and chair. However pt states she will go home has grand greciather to assist her and agreeable to f/u HH services PT/OT. Thank you for this referral. Cassandra Rodriguez PT
[2019-08-20 16:00] VITALS: BP 126/71
--- NOTE | 2019-08-20 17:20 | NUR ---
PT SITTING UP IN CHAIR AT THIS TIME WITH NO NEEDS NOTED. CALL LIGHT IS WITHIN REACH.
[2019-08-20 20:00] VITALS: BP 134/82
--- NOTE | 2019-08-20 20:59 | NUR ---
PATIENT MEDICATED PER REQUEST WITH RESTORIL TO HELP SLEEP. WILL CHECK EFFECTIVENESS.
--- NOTE | 2019-08-20 23:00 | NUR ---
PATIENT VOICED NO COMPLAINTS AT THIS TIME. NO OVERT DISTRESS NOTED. RESP ARE EASY AND REGULAR. CALL LIGHT WIHTIN REACH
[2019-08-21] VITALS: BP 119/65
--- NOTE | 2019-08-21 00:53 | NUR ---
PATIENT MEDICATEDW YINA ANDERSON FOR C/O BACK PAIN 10/14. WILL MONITOR
--- NOTE | 2019-08-21 01:53 | NUR ---
NORCO APPEARS EFFECTIVE. RESTING IN BED QUIETLY, EYES CLOSED. NO DISTRESS. CALL LIGHT WITHIN REACH
--- NOTE | 2019-08-21 04:00 | NUR ---
PATIENT ASLEEP, EYES CLOSED. NO DISTRESS NOTED. CALL LIGHT WITHIN REACH
[2019-08-21 06:14] LABS: BASO % 0.1 % (0.0-1.0); HEMATOCRIT 33.7 % (37.0-47.0); LYMPH # 1.4 10*3/uL (1.3-4.4); LYMPH % 10.7 % (27.0-41.0); MEAN CELL VOLUME 85.3 fl (81.0-99.0); MEAN CORPUSCULAR HGB 25.6 pg (27.0-31.0); MEAN PLATELET VOLUME 11.3 fl (9.6-12.3); MONO # 0.6 10*3/uL (0.1-1.0); MONO % 4.3 % (3.0-9.0); NEUT % 83.5 % (47.0-73.0); PLATELET COUNT AUTOMATED 292 10*3/uL (130-400); RED BLOOD COUNT 3.95 10*6/uL (4.10-5.10); RED CELL DISTRI WIDTH 18.4 % (0-14.5); WHITE BLOOD COUNT 13.1 10*3/uL (4.8-10.8)
[2019-08-21 06:17] LABS: CREATININE 1.09 mg/dL (0.55-1.02); POTASSIUM 4.3 mmol/L (3.5-5.1); TOTAL PROTEIN 6.8 gm/dL (6.4-8.2)
[2019-08-21 08:00] VITALS: BP 120/69
--- NOTE | 2019-08-21 08:37 | NUR ---
PATIENT REQUESTED AND RECEIVED PO NORCO PER PRN ORDER FOR C/O BACK PAIN AND KNEE PAIN. RATES PAIN 10/14. WILL MONITOR EFFECTIVENESS.
--- NOTE | 2019-08-21 08:40 | NUR ---
PT REQUESTED AND RECEIVED PO NORCO PER PRN ORDER FOR C/O BACK AND KNEE PAIN. CHRONIC PER PT. RATES PAIN 10/14. WILL MONITOR EFFECTIVENESS.
--- NOTE | 2019-08-21 09:37 | NUR ---
MONICA RELIEVING PAIN PER PT. WILL CONTINUE TO MONITOR. CALL LIGHT WITHIN REACH.
--- NOTE | 2019-08-21 09:45 | NUR ---
NORCO APPEARS EFFECTIVE AT THIS TIME. PT RESTING QUIETLY IN BED WITH EYES CLOSED. 02 IN USE. CALL LIGHT WITHIN REACH.
--- NOTE | 2019-08-21 10:50 | NUR ---
IN TO SEE PATIENT.
[2019-08-21] MEDS ORDERED: LEVAQUIN500 M2 PO (11:22)
[2019-08-21] MEDS ORDERED: FLONASE ALLERG9.9 ML NAS (11:22)
[2019-08-21] MEDS ORDERED: Ipratropium Brom3 ML NEB (11:22)
[2019-08-21] MEDS ORDERED: PREDNISONE10 MG PO (11:22)
--- NOTE | 2019-08-21 13:15 | NUR ---
PATIENT REFUSED DISCHARGE PHOTO OF WOUND TO COCCYX.
--- NOTE | 2019-08-21 13:22 | NUR ---
Discharge instructions reviewed with patient/family. Patient receptive and verbalizes understanding. Follow-up care arranged. Written instructions given to patient/family. AYSHA DONG.
--- NOTE | 2019-08-25 10:55 | NUR ---
PTS ORDER FOR NEBULIZER TO HOME CARE [facility] ON 08-21-19. REFAXED ORDER 08-25-19 TO [facility] FOR NEBULIZER.
== END 2019-08-21 13:22 | disposition home or self-care (01) | DRG 193 ==
LOC: ED 20:13 → EDHOLD 23:25 → 5E 23:25
PROVIDERS: Emergency Medicine; Internal Medicine; Internal Medicine Critical Care Medicine; ADMIT Emergency Medicine
DX: J18.9 Pneumonia, unspecified organism (principal); N17.0 Acute kidney failure with tubular necrosis; J96.21 Acute and chronic respiratory failure with hypoxia; E43 Unspecified severe protein-calorie malnutrition; J44.0 Chronic obstructive pulmonary disease with (acute) lower respiratory infection; J44.1 Chronic obstructive pulmonary disease with (acute) exacerbation; I50.32 Chronic diastolic (congestive) heart failure; J96.12 Chronic respiratory failure with hypercapnia; I13.0 Hypertensive heart and chronic kidney disease with heart failure and stage 1 through stage 4 chronic kidney disease, or unspecified chronic kidney disease; Z68.42 Body mass index [BMI] 45.0-49.9, adult; E11.65 Type 2 diabetes mellitus with hyperglycemia; G47.33 Obstructive sleep apnea (adult) (pediatric); L89.152 Pressure ulcer of sacral region, stage 2; F41.1 Generalized anxiety disorder; I25.10 Atherosclerotic heart disease of native coronary artery without angina pectoris; N18.3 Chronic kidney disease, stage 3 (moderate); E11.22 Type 2 diabetes mellitus with diabetic chronic kidney disease; F32.9 Major depressive disorder, single episode, unspecified; E11.42 Type 2 diabetes mellitus with diabetic polyneuropathy; E78.2 Mixed hyperlipidemia; E66.01 Morbid (severe) obesity due to excess calories; I25.2 Old myocardial infarction; Z98.51 Tubal ligation status; Z80.42 Family history of malignant neoplasm of prostate; Z82.49 Family history of ischemic heart disease and other diseases of the circulatory system; Z79.82 Long term (current) use of aspirin; Z79.899 Other long term (current) drug therapy; Z88.8 Allergy status to other drugs, medicaments and biological substances; Z87.891 Personal history of nicotine dependence

== ENCOUNTER 2019-09-20 19:06 | Emergency (ER) | payer OTHER ==
[~2019-09-20 19:06] MED LIST changes: +ASPIRIN ADULT L81 M2 PO; +FLONASE ALLERG9.9 ML NAS; +Ipratropium Brom3 ML NEB; +LEVAQUIN500 M2 PO; +PROAIR HFA8.5 GM INH
[2019-09-20 19:21] VITALS: BP 123/75
[2019-09-20 19:48] LABS: BASO # 0.1 10*3/uL (0.0-0.1); BASO % 0.6 % (0.0-1.0); EOS # 0.3 10*3/uL (0.0-0.4); EOS % 2.7 % (1.0-4.0); HEMATOCRIT 34.7 % (37.0-47.0); LYMPH # 2.1 10*3/uL (1.3-4.4); LYMPH % 20.9 % (27.0-41.0); MEAN CELL VOLUME 89.2 fl (81.0-99.0); MEAN CORPUSCULAR HGB 25.7 pg (27.0-31.0); MEAN CORPUSCULAR HGB CONC 28.8 g/dl (33.0-37.0); MEAN PLATELET VOLUME 10.4 fl (9.6-12.3); MONO # 0.8 10*3/uL (0.1-1.0); MONO % 7.6 % (3.0-9.0); NEUT # 6.7 10*3/uL (2.3-7.9); NEUT % 67.6 % (47.0-73.0); PLATELET COUNT AUTOMATED 259 10*3/uL (130-400); RED BLOOD COUNT 3.89 10*6/uL (4.10-5.10); RED CELL DISTRI WIDTH 20.1 % (0-14.5); WHITE BLOOD COUNT 9.9 10*3/uL (4.8-10.8)
[2019-09-20 20:14] LABS: ALKALINE PHOSPHATASE 55 U/L (45-117); BUN 18 mg/dl (7-24); CHLORIDE 107 mmol/L (98-107); CREATININE 1.81 mg/dL (0.55-1.02); POTASSIUM 4.1 mmol/L (3.5-5.1); SGOT/AST 11 IU/L (3-35); SGPT/ALT 18 U/L (12-78); SODIUM 140 mmol/L (136-145); TOTAL PROTEIN 6.7 gm/dL (6.4-8.2)
[2019-09-20 20:45] LABS: TROPONIN I < 0.015 ng/ml (<0.045)
== END 2019-09-20 21:00 | disposition home or self-care (01) ==
LOC: ED 19:06
PROVIDERS: Emergency Medicine
DX: J44.9 Chronic obstructive pulmonary disease, unspecified (principal); J40 Bronchitis, not specified as acute or chronic; E11.9 Type 2 diabetes mellitus without complications; I50.9 Heart failure, unspecified; I11.0 Hypertensive heart disease with heart failure; Z99.81 Dependence on supplemental oxygen; Z88.8 Allergy status to other drugs, medicaments and biological substances; Z79.899 Other long term (current) drug therapy; Z79.82 Long term (current) use of aspirin; Z87.891 Personal history of nicotine dependence

== ENCOUNTER → 2019-10-21 | Outpatient (CLI) | payer OTHER | END | disposition home or self-care (01) | LOC: COVID19 03:45 | DX: R05 Cough (principal); J44.9 Chronic obstructive pulmonary disease, unspecified; I50.9 Heart failure, unspecified; J02.9 Acute pharyngitis, unspecified; Z20.828 Contact with and (suspected) exposure to other viral communicable diseases ==

== ENCOUNTER 2019-11-30 17:28 | Inpatient (IN) | payer OTHER ==
[~2019-11-30] VITALS: Ht 172.7 cm; Wt 133.9 kg
[2019-11-30 17:35] VITALS: BP 112/73
[2019-11-30 18:36] LABS: BASO # 0.1 10*3/uL (0.0-0.1); BASO % 0.5 % (0.0-1.0); EOS # 0.3 10*3/uL (0.0-0.4); EOS % 2.5 % (1.0-4.0); HEMATOCRIT 38.4 % (37.0-47.0); LYMPH # 2.3 10*3/uL (1.3-4.4); LYMPH % 21.2 % (27.0-41.0); MEAN CELL VOLUME 84.8 fl (81.0-99.0); MEAN CORPUSCULAR HGB 24.7 pg (27.0-31.0); MEAN CORPUSCULAR HGB CONC 29.2 g/dl (33.0-37.0); MEAN PLATELET VOLUME 10.1 fl (9.6-12.3); MONO # 0.7 10*3/uL (0.1-1.0); MONO % 6.9 % (3.0-9.0); NEUT # 7.3 10*3/uL (2.3-7.9); NEUT % 68.3 % (47.0-73.0); PLATELET COUNT AUTOMATED 321 10*3/uL (130-400); RED BLOOD COUNT 4.53 10*6/uL (4.10-5.10); RED CELL DISTRI WIDTH 20.7 % (0-14.5); WHITE BLOOD COUNT 10.7 10*3/uL (4.8-10.8)
[2019-11-30 18:54] LABS: ALBUMIN 3.1 gm/dl (3.1-4.5); ALKALINE PHOSPHATASE 65 U/L (45-117); BUN 12 mg/dl (7-24); CHLORIDE 105 mmol/L (98-107); CREATININE 1.18 mg/dL (0.55-1.02); POTASSIUM 3.7 mmol/L (3.5-5.1); SGOT/AST 14 IU/L (3-35); SGPT/ALT 17 U/L (12-78); SODIUM 140 mmol/L (136-145); TOTAL PROTEIN 7.3 gm/dL (6.4-8.2)
[2019-11-30 18:55] LABS: TROPONIN I < 0.015 ng/ml (<0.045)
[2019-11-30 20:27] VITALS: BP 130/76
[2019-11-30 20:57] LABS: BILIRUBIN NEGATIVE; CLARITY CLOUDY (CLEAR); COLOR YELLOW (YELLOW); GLUCOSE NEGATIVE; KETONE TRACE
[2019-11-30 20:58] LABS: BLOOD NEGATIVE (NEGATIVE); LEUKO ESTERASE 1+ (NEGATIVE); NITRITE NEGATIVE (NEGATIVE); UROBILINOGEN 0.2 E.U./dl (0.0-1.0)
[2019-11-30 21:06] LABS: BACTERIA 2+; MUCOUS TRACE; RBC 0-2 rbc/hpf (0-2); WBC TNTC wbc/hpf (0-5)
[2019-11-30 23:03] VITALS: BP 130/67
[2019-11-30 23:36] VITALS: BP 111/77
[2019-12-01 06:53] LABS: BASO # 0.1 10*3/uL (0.0-0.1); BASO % 0.5 % (0.0-1.0); EOS # 0.2 10*3/uL (0.0-0.4); EOS % 2.2 % (1.0-4.0); HEMATOCRIT 35.3 % (37.0-47.0); LYMPH % 20.1 % (27.0-41.0); MEAN CELL VOLUME 87.4 fl (81.0-99.0); MEAN CORPUSCULAR HGB 24.8 pg (27.0-31.0); MEAN CORPUSCULAR HGB CONC 28.3 g/dl (33.0-37.0); MEAN PLATELET VOLUME 9.9 fl (9.6-12.3); MONO # 0.8 10*3/uL (0.1-1.0); MONO % 8.6 % (3.0-9.0); NEUT # 6.6 10*3/uL (2.3-7.9); NEUT % 67.6 % (47.0-73.0); PLATELET COUNT AUTOMATED 274 10*3/uL (130-400); RED BLOOD COUNT 4.04 10*6/uL (4.10-5.10); RED CELL DISTRI WIDTH 20.5 % (0-14.5); WHITE BLOOD COUNT 9.8 10*3/uL (4.8-10.8)
[2019-12-01 07:26] LABS: POTASSIUM 4.2 mmol/L (3.5-5.1)
[2019-12-01 07:36] LABS: CREATININE 1.17 mg/dL (0.55-1.02)
[2019-12-01 08:00] VITALS: BP 131/91
[2019-12-01 12:00] VITALS: BP 114/51
[2019-12-01 16:00] VITALS: BP 102/53
[2019-12-01 20:00] VITALS: BP 140/80
[2019-12-02] VITALS: BP 143/72
[2019-12-02 07:09] LABS: BASO % 0.3 % (0.0-1.0); EOS # 0.2 10*3/uL (0.0-0.4); EOS % 2.2 % (1.0-4.0); HEMATOCRIT 31.9 % (37.0-47.0); LYMPH # 2.3 10*3/uL (1.3-4.4); LYMPH % 22.2 % (27.0-41.0); MEAN CELL VOLUME 87.6 fl (81.0-99.0); MEAN CORPUSCULAR HGB 25.3 pg (27.0-31.0); MEAN CORPUSCULAR HGB CONC 28.8 g/dl (33.0-37.0); MEAN PLATELET VOLUME 10.7 fl (9.6-12.3); MONO # 0.9 10*3/uL (0.1-1.0); MONO % 8.7 % (3.0-9.0); NEUT # 6.9 10*3/uL (2.3-7.9); NEUT % 65.7 % (47.0-73.0); PLATELET COUNT AUTOMATED 266 10*3/uL (130-400); RED BLOOD COUNT 3.64 10*6/uL (4.10-5.10); RED CELL DISTRI WIDTH 20.3 % (0-14.5); WHITE BLOOD COUNT 10.5 10*3/uL (4.8-10.8)
[2019-12-02 07:38] LABS: BUN 12 mg/dl (7-24); CHLORIDE 107 mmol/L (98-107); CREATININE 0.99 mg/dL (0.55-1.02); POTASSIUM 4.1 mmol/L (3.5-5.1); SODIUM 142 mmol/L (136-145)
[2019-12-02 08:00] VITALS: BP 135/95
[2019-12-02] MEDS ORDERED: DOXYCYCLINE100 M3 PO (08:57)
[2019-12-02 12:00] VITALS: BP 116/67
== END 2019-12-02 13:35 | disposition home health service (06) | DRG 178 ==
LOC: ED 17:28 → EDHOLD 22:35 → 4E 22:35
PROVIDERS: Internal Medicine; Physician Assistant; ADMIT Internal Medicine; ATTEND Internal Medicine
PROC: 5A09357 Assistance with Respiratory Ventilation, Less than 24 Consecutive Hours, Continuous Positive Airway Pressure (ICD-10-PCS; principal; 2019-12-02)
DX: J69.0 Pneumonitis due to inhalation of food and vomit (principal); N30.00 Acute cystitis without hematuria; E87.2 Acidosis; J96.11 Chronic respiratory failure with hypoxia; I13.0 Hypertensive heart and chronic kidney disease with heart failure and stage 1 through stage 4 chronic kidney disease, or unspecified chronic kidney disease; I50.32 Chronic diastolic (congestive) heart failure; J96.12 Chronic respiratory failure with hypercapnia; Z68.41 Body mass index [BMI] 40.0-44.9, adult; E55.9 Vitamin D deficiency, unspecified; N18.3 Chronic kidney disease, stage 3 (moderate); E66.01 Morbid (severe) obesity due to excess calories; E11.22 Type 2 diabetes mellitus with diabetic chronic kidney disease; E11.65 Type 2 diabetes mellitus with hyperglycemia; I25.10 Atherosclerotic heart disease of native coronary artery without angina pectoris; F32.9 Major depressive disorder, single episode, unspecified; F41.1 Generalized anxiety disorder; M10.9 Gout, unspecified; E78.2 Mixed hyperlipidemia; J43.9 Emphysema, unspecified; E11.40 Type 2 diabetes mellitus with diabetic neuropathy, unspecified; G47.33 Obstructive sleep apnea (adult) (pediatric); G25.81 Restless legs syndrome; Z88.8 Allergy status to other drugs, medicaments and biological substances; Z80.42 Family history of malignant neoplasm of prostate; Z83.6 Family history of other diseases of the respiratory system; Z82.49 Family history of ischemic heart disease and other diseases of the circulatory system; Z79.899 Other long term (current) drug therapy; I25.2 Old myocardial infarction; Z87.891 Personal history of nicotine dependence

== ENCOUNTER 2019-12-08 10:34 | Emergency (ER) | payer OTHER ==
[~2019-12-08] VITALS: Ht 172.7 cm; Wt 133.8 kg
[2019-12-08 10:39] VITALS: BP 113/67
== END 2019-12-08 12:53 | disposition home or self-care (01) ==
LOC: ED 10:34
DX: M54.5 Low back pain (principal); R20.0 Anesthesia of skin; R20.2 Paresthesia of skin; Z88.8 Allergy status to other drugs, medicaments and biological substances; Z79.899 Other long term (current) drug therapy; Z79.82 Long term (current) use of aspirin; Z87.891 Personal history of nicotine dependence

== ENCOUNTER → 2019-12-27 | Outpatient (CLI) | payer OTHER | END | disposition home or self-care (01) | LOC: CARD 13:19 | PROVIDERS: ATTEND Nurse Practitioner Family | DX: I21.9 Acute myocardial infarction, unspecified (principal); J44.9 Chronic obstructive pulmonary disease, unspecified; J18.9 Pneumonia, unspecified organism; R53.83 Other fatigue; R07.89 Other chest pain ==

== ENCOUNTER → 2020-02-08 | Outpatient (CLI) | payer OTHER ==
[~2020-02-08] MED LIST changes: +AMOXICILLIN500 M2 PO
--- NOTE | 2020-02-08 07:00 | NUR ---
INFORMED CONSENT OBTAINED FOR LEXISCAN NUCLEAR STRESS TEST WITH DR. RUFFIN. RESTING EKG SINUS TACHYCARDIA WITH FREQUENT PAC'S AND OCCASIONAL PVC. HAS A RESTING HR OF 101 WITH BP OF 138/84. LUNGS CLEAR WITH SPO2 OF 94% ON ROOM AIR. PT COMPLETED A 1:00 LEXISCAN PROTOCOL RECEIVING LEXISCAN 0.4 MG IV OVER 10 SECONDS. HAD NO CHEST PAIN OR ANY EKG CHANGES. HAD A PEAK HR 109 WITH BP OF 132/84. LAST RECOVERY HR OF 105 WITH BP OF 132/84. AWAITING SCANNING IN STABLE CONDITION.
== END | disposition home or self-care (01) ==
LOC: CARD 00:18
PROVIDERS: ATTEND Internal Medicine Cardiovascular Disease
DX: R94.31 Abnormal electrocardiogram [ECG] [EKG] (principal); R53.81 Other malaise

== ENCOUNTER 2020-04-20 11:42 | Emergency (ER) | payer OTHER ==
[~2020-04-20] VITALS: Wt 131.5 kg
[~2020-04-20 11:42] MED LIST changes: -AMOXICILLIN500 M2 PO
[2020-04-20 12:38] LABS: BASO # 0.1 10*3/uL (0.0-0.1); BASO % 0.6 % (0.0-1.0); EOS # 0.5 10*3/uL (0.0-0.4); EOS % 3.9 % (1.0-4.0); HEMATOCRIT 38.5 % (37.0-47.0); LYMPH # 1.6 10*3/uL (1.3-4.4); MEAN CELL VOLUME 90.6 fl (81.0-99.0); MEAN CORPUSCULAR HGB 27.1 pg (27.0-31.0); MEAN CORPUSCULAR HGB CONC 29.9 g/dl (33.0-37.0); MEAN PLATELET VOLUME 9.9 fl (9.6-12.3); MONO # 0.8 10*3/uL (0.1-1.0); MONO % 6.9 % (3.0-9.0); NEUT % 75.2 % (47.0-73.0); PLATELET COUNT AUTOMATED 336 10*3/uL (130-400); RED BLOOD COUNT 4.25 10*6/uL (4.10-5.10); RED CELL DISTRI WIDTH 18.6 % (0-14.5)
[2020-04-20 12:55] LABS: BUN 15 mg/dl (7-24); CHLORIDE 104 mmol/L (98-107); CREATININE 1.08 mg/dL (0.55-1.02); POTASSIUM 4.1 mmol/L (3.5-5.1); SGOT/AST 13 IU/L (3-35); SGPT/ALT 20 U/L (12-78); SODIUM 138 mmol/L (136-145)
[2020-04-20 12:58] LABS: ALKALINE PHOSPHATASE 71 U/L (45-117)
[2020-04-20 12:59] LABS: TROPONIN I < 0.015 ng/ml (<0.045)
[2020-04-20 15:38] VITALS: BP 130/70
[2020-04-20] MEDS ORDERED: AMOXICILLIN500 M2 PO (17:12)
== END 2020-04-20 17:15 | disposition home or self-care (01) ==
LOC: ED 11:42
PROVIDERS: Physician Assistant
DX: R59.0 Localized enlarged lymph nodes (principal); Z20.828 Contact with and (suspected) exposure to other viral communicable diseases; R79.1 Abnormal coagulation profile; Z99.81 Dependence on supplemental oxygen; Z88.8 Allergy status to other drugs, medicaments and biological substances; Z79.899 Other long term (current) drug therapy; Z79.82 Long term (current) use of aspirin; Z87.891 Personal history of nicotine dependence

== ENCOUNTER → 2020-05-13 | Outpatient (CLI) | payer OTHER ==
[~2020-05-13] MED LIST changes: +AMOXICILLIN500 M2 PO
== END | disposition home or self-care (01) ==
LOC: RAD 15:16
PROVIDERS: ATTEND Nurse Practitioner Family
DX: J98.11 Atelectasis (principal); J44.9 Chronic obstructive pulmonary disease, unspecified; J18.9 Pneumonia, unspecified organism

== ENCOUNTER → 2020-06-09 | Outpatient (CLI) | payer OTHER ==
[2020-06-09 13:21] LABS: BASO # 0.1 10*3/uL (0.0-0.1); BASO % 0.7 % (0.0-1.0); EOS # 0.3 10*3/uL (0.0-0.4); EOS % 2.1 % (1.0-4.0); HEMATOCRIT 38.7 % (37.0-47.0); LYMPH # 2.8 10*3/uL (1.3-4.4); LYMPH % 20.6 % (27.0-41.0); MEAN CELL VOLUME 90.2 fl (81.0-99.0); MEAN CORPUSCULAR HGB 26.8 pg (27.0-31.0); MEAN CORPUSCULAR HGB CONC 29.7 g/dl (33.0-37.0); MEAN PLATELET VOLUME 9.7 fl (9.6-12.3); MONO # 1.2 10*3/uL (0.1-1.0); MONO % 9.1 % (3.0-9.0); NEUT # 9.2 10*3/uL (2.3-7.9); NEUT % 67.1 % (47.0-73.0); PLATELET COUNT AUTOMATED 340 10*3/uL (130-400); RED BLOOD COUNT 4.29 10*6/uL (4.10-5.10); RED CELL DISTRI WIDTH 17.4 % (0-14.5); WHITE BLOOD COUNT 13.7 10*3/uL (4.8-10.8)
[2020-06-09 13:29] LABS: BILIRUBIN Negative (Negative); BLOOD Negative (Negative); CLARITY Clear (Clear); COLOR Yellow (Yellow); GLUCOSE Negative (Negative); KETONE Negative (Negative); LEUKO ESTERASE Negative (Negative); NITRITE Negative (Negative); UROBILINOGEN 0.2 E.U./dl (0.0-1.0)
[2020-06-09 13:30] LABS: URINE CREATININE RANDOM 18.4 mg/dL
[2020-06-09 13:34] LABS: ALBUMIN 3.2 gm/dl (3.1-4.5); CREATININE 1.15 mg/dL (0.55-1.02); POTASSIUM 4.3 mmol/L (3.5-5.1)
[2020-06-09 13:55] LABS: BACTERIA 2+
[2020-06-09 14:37] LABS: VITAMIN D, 25-HYDROXY 30.9 ng/mL (30-100)
[2020-06-09 14:38] LABS: FERRITIN 11.6 ng/mL (10.0-291.0); PTH INTACT 66.4 pg/mL (18.5-88.0)
== END | disposition home or self-care (01) ==
LOC: LAB 12:56
PROVIDERS: ATTEND Internal Medicine Nephrology
DX: N18.30 Chronic kidney disease, stage 3 unspecified (principal); D63.1 Anemia in chronic kidney disease; N25.81 Secondary hyperparathyroidism of renal origin; Z79.899 Other long term (current) drug therapy

== ENCOUNTER 2020-11-19 23:22 | Inpatient (IN) | payer OTHER ==
[~2020-11-19] VITALS: Ht 170.1 cm; Wt 137.6 kg
[~2020-11-19 23:22] MED LIST changes: +CLONAZEPAM1 MG PO; +VALIUM5 MG PO
[2020-11-19 23:38] LABS: BASO # 0.1 10*3/uL (0.0-0.1); BASO % 0.6 % (0.0-1.0); EOS # 0.3 10*3/uL (0.0-0.4); EOS % 2.3 % (1.0-4.0); HEMATOCRIT 34.4 % (37.0-47.0); LYMPH # 2.9 10*3/uL (1.3-4.4); LYMPH % 22.5 % (27.0-41.0); MEAN CELL VOLUME 89.4 fl (81.0-99.0); MEAN CORPUSCULAR HGB CONC 30.2 g/dl (33.0-37.0); MEAN PLATELET VOLUME 10.1 fl (9.6-12.3); MONO # 1.1 10*3/uL (0.1-1.0); MONO % 8.4 % (3.0-9.0); NEUT # 8.3 10*3/uL (2.3-7.9); NEUT % 65.8 % (47.0-73.0); PLATELET COUNT AUTOMATED 294 10*3/uL (130-400); RED BLOOD COUNT 3.85 10*6/uL (4.10-5.10); RED CELL DISTRI WIDTH 18.4 % (0-14.5); WHITE BLOOD COUNT 12.7 10*3/uL (4.8-10.8)
[2020-11-19 23:56] LABS: ALBUMIN 2.9 gm/dl (3.1-4.5); ALKALINE PHOSPHATASE 69 U/L (45-117); BUN 13 mg/dl (7-24); CHLORIDE 103 mmol/L (98-107); CREATININE 1.03 mg/dL (0.55-1.02); SGOT/AST 17 IU/L (3-35); SGPT/ALT 25 U/L (12-78); SODIUM 137 mmol/L (136-145); TOTAL PROTEIN 6.8 gm/dL (6.4-8.2)
[2020-11-19 23:57] LABS: TROPONIN I < 0.015 ng/ml (<0.045)
[2020-11-20] VITALS (8 sets, daily range): BP systolic 128–179; BP diastolic 68–89
[2020-11-20 01:27] LABS: BILIRUBIN Negative (Negative); BLOOD Negative (Negative); CLARITY Clear (Clear); COLOR Yellow (Yellow); GLUCOSE Negative (Negative); KETONE Negative (Negative); LEUKO ESTERASE Negative (Negative); NITRITE Negative (Negative); PH 6.5 (4.5-8.0); SPECIFIC GRAVITY 1.015 (1.001-1.030); UROBILINOGEN 0.2 E.U./dl (0.0-1.0)
[2020-11-20 01:46] LABS: EPITHELIAL CELLS 16-20; RBC 0-2 rbc/hpf (0-2); WBC 0-2 wbc/hpf (0-5)
[2020-11-20 05:52] LABS: BUN 13 mg/dl (7-24); CHLORIDE 102 mmol/L (98-107); CHOLESTEROL 116 mg/dL (<200); CREATININE 0.97 mg/dL (0.55-1.02); LDL CHOLESTEROL 34 mg/dL (9-159); POTASSIUM 3.9 mmol/L (3.5-5.1); SODIUM 138 mmol/L (136-145); TRIGLYCERIDES 166 mg/dl (<150)
[2020-11-20 06:03] LABS: BASO # 0.1 10*3/uL (0.0-0.1); BASO % 0.5 % (0.0-1.0); EOS # 0.3 10*3/uL (0.0-0.4); EOS % 2.8 % (1.0-4.0); HEMATOCRIT 37.8 % (37.0-47.0); LYMPH # 2.4 10*3/uL (1.3-4.4); LYMPH % 20.2 % (27.0-41.0); MEAN CELL VOLUME 90.4 fl (81.0-99.0); MEAN CORPUSCULAR HGB 26.6 pg (27.0-31.0); MEAN CORPUSCULAR HGB CONC 29.4 g/dl (33.0-37.0); MEAN PLATELET VOLUME 10.6 fl (9.6-12.3); MONO % 8.5 % (3.0-9.0); NEUT # 7.8 10*3/uL (2.3-7.9); NEUT % 67.5 % (47.0-73.0); PLATELET COUNT AUTOMATED 317 10*3/uL (130-400); RED BLOOD COUNT 4.18 10*6/uL (4.10-5.10); RED CELL DISTRI WIDTH 18.7 % (0-14.5); WHITE BLOOD COUNT 11.6 10*3/uL (4.8-10.8)
[2020-11-21] VITALS: BP 147/79
== END 2020-11-21 12:56 | disposition home or self-care (01) | DRG 554 ==
LOC: ED 23:22 → EDHOLD 11-20 02:35 → 5E 11-20 02:35
PROVIDERS: Emergency Medicine; Internal Medicine; ADMIT Family Medicine; ATTEND Family Medicine
PROC: 4A02XM4 Measurement of Cardiac Total Activity, External Approach (ICD-10-PCS; principal; 2020-11-21)
PROC: 3E073KZ Introduction of Other Diagnostic Substance into Coronary Artery, Percutaneous Approach (ICD-10-PCS; 2020-11-21)
DX: M10.9 Gout, unspecified (principal); I13.0 Hypertensive heart and chronic kidney disease with heart failure and stage 1 through stage 4 chronic kidney disease, or unspecified chronic kidney disease; I50.32 Chronic diastolic (congestive) heart failure; E44.0 Moderate protein-calorie malnutrition; J96.11 Chronic respiratory failure with hypoxia; J96.12 Chronic respiratory failure with hypercapnia; Z68.42 Body mass index [BMI] 45.0-49.9, adult; K76.0 Fatty (change of) liver, not elsewhere classified; G47.33 Obstructive sleep apnea (adult) (pediatric); E11.22 Type 2 diabetes mellitus with diabetic chronic kidney disease; E11.65 Type 2 diabetes mellitus with hyperglycemia; N18.31 Chronic kidney disease, stage 3a; E78.2 Mixed hyperlipidemia; J44.9 Chronic obstructive pulmonary disease, unspecified; F41.1 Generalized anxiety disorder; E66.01 Morbid (severe) obesity due to excess calories; I25.10 Atherosclerotic heart disease of native coronary artery without angina pectoris; Z79.51 Long term (current) use of inhaled steroids; Z79.899 Other long term (current) drug therapy; Z79.82 Long term (current) use of aspirin; Z79.1 Long term (current) use of non-steroidal anti-inflammatories (NSAID); Z88.8 Allergy status to other drugs, medicaments and biological substances; Z98.51 Tubal ligation status; Z87.891 Personal history of nicotine dependence; Z82.49 Family history of ischemic heart disease and other diseases of the circulatory system; Z80.42 Family history of malignant neoplasm of prostate

== ENCOUNTER → 2021-01-22 | Day surgery (SDC) | payer OTHER ==
[~2021-01-22] VITALS: Ht 172.7 cm; Wt 135.2 kg
[2021-01-22 07:49] VITALS: BP 122/83
[2021-01-22 08:13] VITALS: BP 124/71
[2021-01-22 08:28] VITALS: BP 118/72
[2021-01-22 08:43] VITALS: BP 142/76
== END | disposition home or self-care (01) ==
LOC: SDC 01-11 12:30
PROVIDERS: ATTEND Surgery
DX: R13.10 Dysphagia, unspecified (principal); K29.50 Unspecified chronic gastritis without bleeding; E11.9 Type 2 diabetes mellitus without complications; J44.9 Chronic obstructive pulmonary disease, unspecified; E78.00 Pure hypercholesterolemia, unspecified; I13.0 Hypertensive heart and chronic kidney disease with heart failure and stage 1 through stage 4 chronic kidney disease, or unspecified chronic kidney disease; I50.9 Heart failure, unspecified; F41.9 Anxiety disorder, unspecified; E11.22 Type 2 diabetes mellitus with diabetic chronic kidney disease; G47.00 Insomnia, unspecified; N18.30 Chronic kidney disease, stage 3 unspecified; M10.9 Gout, unspecified; F32.9 Major depressive disorder, single episode, unspecified; Z79.899 Other long term (current) drug therapy; Z20.822 Contact with and (suspected) exposure to COVID-19

== ENCOUNTER 2021-02-16 21:15 | Inpatient (IN) | payer OTHER ==
[~2021-02-16] VITALS: Ht 172.7 cm; Wt 134.3 kg
[2021-02-16 21:20] VITALS: BP 133/74
[2021-02-16 22:20] LABS: BASO % 0.3 % (0.0-1.0); EOS # 0.1 10*3/uL (0.0-0.4); EOS % 0.9 % (1.0-4.0); HEMATOCRIT 37.7 % (37.0-47.0); LYMPH # 1.6 10*3/uL (1.3-4.4); MEAN CELL VOLUME 87.1 fl (81.0-99.0); MEAN CORPUSCULAR HGB 26.6 pg (27.0-31.0); MEAN CORPUSCULAR HGB CONC 30.5 g/dl (33.0-37.0); MEAN PLATELET VOLUME 10.4 fl (9.6-12.3); MONO # 0.9 10*3/uL (0.1-1.0); MONO % 8.9 % (3.0-9.0); NEUT # 7.6 10*3/uL (2.3-7.9); NEUT % 73.4 % (47.0-73.0); PLATELET COUNT AUTOMATED 234 10*3/uL (130-400); RED BLOOD COUNT 4.33 10*6/uL (4.10-5.10); WHITE BLOOD COUNT 10.3 10*3/uL (4.8-10.8)
[2021-02-16 22:25] VITALS: BP 133/76
[2021-02-16 22:35] LABS: ALBUMIN 2.9 gm/dl (3.1-4.5); ALKALINE PHOSPHATASE 75 U/L (45-117); BUN 15 mg/dl (7-24); CHLORIDE 100 mmol/L (98-107); CREATININE 1.11 mg/dL (0.55-1.02); POTASSIUM 3.9 mmol/L (3.5-5.1); SGOT/AST 49 IU/L (3-35); SGPT/ALT 32 U/L (12-78); SODIUM 134 mmol/L (136-145); TOTAL PROTEIN 7.1 gm/dL (6.4-8.2)
[2021-02-16 22:36] LABS: TROPONIN I < 0.015 ng/ml (<0.045)
[2021-02-17] VITALS (7 sets, daily range): BP systolic 100–148; BP diastolic 55–108
[2021-02-17] MEDS ORDERED: HYDROCODONE-AC1 EACH PO (00:34)
[2021-02-17 06:13] LABS: ALBUMIN 2.9 gm/dl (3.1-4.5); CREATININE 1.31 mg/dL (0.55-1.02); POTASSIUM 4.1 mmol/L (3.5-5.1); TOTAL PROTEIN 7.1 gm/dL (6.4-8.2)
[2021-02-17 06:24] LABS: BASO % 0.2 % (0.0-1.0); HEMATOCRIT 36.8 % (37.0-47.0); LYMPH # 1.2 10*3/uL (1.3-4.4); LYMPH % 13.1 % (27.0-41.0); MEAN CELL VOLUME 86.4 fl (81.0-99.0); MEAN CORPUSCULAR HGB 26.3 pg (27.0-31.0); MEAN CORPUSCULAR HGB CONC 30.4 g/dl (33.0-37.0); MEAN PLATELET VOLUME 10.8 fl (9.6-12.3); MONO # 0.1 10*3/uL (0.1-1.0); MONO % 1.5 % (3.0-9.0); NEUT # 7.7 10*3/uL (2.3-7.9); NEUT % 84.3 % (47.0-73.0); PLATELET COUNT AUTOMATED 243 10*3/uL (130-400); RED BLOOD COUNT 4.26 10*6/uL (4.10-5.10); RED CELL DISTRI WIDTH 18.1 % (0-14.5); WHITE BLOOD COUNT 9.1 10*3/uL (4.8-10.8)
[2021-02-18] VITALS: BP 118/75
[2021-02-18 06:21] LABS: BUN 23 mg/dl (7-24); CHLORIDE 103 mmol/L (98-107); CREATININE 0.99 mg/dL (0.55-1.02); HEMATOCRIT 38.5 % (37.0-47.0); MEAN CELL VOLUME 85.9 fl (81.0-99.0); MEAN CORPUSCULAR HGB 26.6 pg (27.0-31.0); MEAN CORPUSCULAR HGB CONC 30.9 g/dl (33.0-37.0); PLATELET COUNT AUTOMATED 284 10*3/uL (130-400); POTASSIUM 4.1 mmol/L (3.5-5.1); RED BLOOD COUNT 4.48 10*6/uL (4.10-5.10); RED CELL DISTRI WIDTH 17.7 % (0-14.5); SODIUM 136 mmol/L (136-145); WHITE BLOOD COUNT 13.4 10*3/uL (4.8-10.8)
[2021-02-18 07:27] LABS: PLATELET SUFFICIENCY NORMAL (NORMAL); POLYCHROMASIA SLIGHT; TOTAL CELLS COUNTED 100 #CELLS
[2021-02-18 07:28] LABS: SCHISTOCYTES FEW
[2021-02-18 08:00] VITALS: BP 135/103
[2021-02-18 12:00] VITALS: BP 134/116
[2021-02-18 16:00] VITALS: BP 132/96
[2021-02-18 20:00] VITALS: BP 111/84
[2021-02-19] VITALS: BP 135/77
[2021-02-19 06:47] LABS: BASO % 0.2 % (0.0-1.0); HEMATOCRIT 37.1 % (37.0-47.0); LYMPH # 1.8 10*3/uL (1.3-4.4); LYMPH % 17.5 % (27.0-41.0); MEAN CELL VOLUME 87.7 fl (81.0-99.0); MEAN CORPUSCULAR HGB 26.2 pg (27.0-31.0); MEAN CORPUSCULAR HGB CONC 29.9 g/dl (33.0-37.0); MEAN PLATELET VOLUME 10.7 fl (9.6-12.3); MONO # 1.3 10*3/uL (0.1-1.0); MONO % 12.2 % (3.0-9.0); NEUT # 7.2 10*3/uL (2.3-7.9); NEUT % 69.4 % (47.0-73.0); PLATELET COUNT AUTOMATED 236 10*3/uL (130-400); RED BLOOD COUNT 4.23 10*6/uL (4.10-5.10); RED CELL DISTRI WIDTH 18.6 % (0-14.5); WHITE BLOOD COUNT 10.3 10*3/uL (4.8-10.8)
[2021-02-19 08:00] VITALS: BP 129/88
[2021-02-19 12:00] VITALS: BP 127/80
[2021-02-19 16:00] VITALS: BP 139/68
[2021-02-19 20:00] VITALS: BP 121/75
[2021-02-20] VITALS: BP 116/70
[2021-02-20 06:14] LABS: BUN 18 mg/dl (7-24); CHLORIDE 103 mmol/L (98-107); CREATININE 0.95 mg/dL (0.55-1.02); POTASSIUM 4.4 mmol/L (3.5-5.1); SODIUM 138 mmol/L (136-145)
[2021-02-20 06:30] LABS: BASO % 0.1 % (0.0-1.0); HEMATOCRIT 36.9 % (37.0-47.0); LYMPH # 1.3 10*3/uL (1.3-4.4); LYMPH % 17.8 % (27.0-41.0); MEAN CORPUSCULAR HGB 26.2 pg (27.0-31.0); MEAN CORPUSCULAR HGB CONC 30.1 g/dl (33.0-37.0); MEAN PLATELET VOLUME 11.1 fl (9.6-12.3); MONO # 0.9 10*3/uL (0.1-1.0); MONO % 12.7 % (3.0-9.0); NEUT % 68.4 % (47.0-73.0); PLATELET COUNT AUTOMATED 235 10*3/uL (130-400); RED BLOOD COUNT 4.24 10*6/uL (4.10-5.10); RED CELL DISTRI WIDTH 18.5 % (0-14.5); WHITE BLOOD COUNT 7.3 10*3/uL (4.8-10.8)
[2021-02-20 08:00] VITALS: BP 101/44
[2021-02-20 12:00] VITALS: BP 122/55
[2021-02-20 15:07] LABS: ORGANISM ID Final report (.)
[2021-02-20 16:00] VITALS: BP 117/84
[2021-02-20 20:00] VITALS: BP 121/62
[2021-02-21] VITALS: BP 150/96
[2021-02-21 06:22] LABS: BASO % 0.1 % (0.0-1.0); HEMATOCRIT 36.9 % (37.0-47.0); LYMPH # 1.5 10*3/uL (1.3-4.4); LYMPH % 21.2 % (27.0-41.0); MEAN CELL VOLUME 87.2 fl (81.0-99.0); MEAN CORPUSCULAR HGB 26.5 pg (27.0-31.0); MEAN CORPUSCULAR HGB CONC 30.4 g/dl (33.0-37.0); MEAN PLATELET VOLUME 10.8 fl (9.6-12.3); MONO # 0.8 10*3/uL (0.1-1.0); MONO % 10.5 % (3.0-9.0); NEUT # 4.8 10*3/uL (2.3-7.9); NEUT % 67.5 % (47.0-73.0); PLATELET COUNT AUTOMATED 230 10*3/uL (130-400); RED BLOOD COUNT 4.23 10*6/uL (4.10-5.10); RED CELL DISTRI WIDTH 18.3 % (0-14.5); WHITE BLOOD COUNT 7.1 10*3/uL (4.8-10.8)
[2021-02-21 06:42] LABS: CHLORIDE 102 mmol/L (98-107); SODIUM 137 mmol/L (136-145)
[2021-02-21 06:48] LABS: BUN 19 mg/dl (7-24); CREATININE 0.83 mg/dL (0.55-1.02)
[2021-02-21 08:00] VITALS: BP 116/70
[2021-02-21 12:00] VITALS: BP 147/94
[2021-02-21] MEDS ORDERED: DECADRON6 M1 PO (13:18)
== END 2021-02-21 14:40 | disposition home or self-care (01) | DRG 871 ==
LOC: ED 21:15 → 4E 02-17 01:22 → EDHOLD 02-17 01:22 → 4E 02-17 02:31
PROVIDERS: Emergency Medicine; Family Medicine; Internal Medicine; ADMIT Internal Medicine; ATTEND Internal Medicine
PROC: XW033E5 Introduction of Remdesivir Anti-infective into Peripheral Vein, Percutaneous Approach, New Technology Group 5 (ICD-10-PCS; principal; 2021-02-18)
DX: A41.89 Other specified sepsis (principal); J96.21 Acute and chronic respiratory failure with hypoxia; U07.1 COVID-19; N17.0 Acute kidney failure with tubular necrosis; J12.82 Pneumonia due to coronavirus disease 2019; J44.1 Chronic obstructive pulmonary disease with (acute) exacerbation; E44.0 Moderate protein-calorie malnutrition; J44.0 Chronic obstructive pulmonary disease with (acute) lower respiratory infection; E87.1 Hypo-osmolality and hyponatremia; R65.20 Severe sepsis without septic shock; Z20.822 Contact with and (suspected) exposure to COVID-19; E55.9 Vitamin D deficiency, unspecified; G47.33 Obstructive sleep apnea (adult) (pediatric); E11.65 Type 2 diabetes mellitus with hyperglycemia; I10 Essential (primary) hypertension; F41.1 Generalized anxiety disorder; E11.42 Type 2 diabetes mellitus with diabetic polyneuropathy; F32.9 Major depressive disorder, single episode, unspecified; E78.2 Mixed hyperlipidemia; R74.01 Elevation of levels of liver transaminase levels; M1A.09X0 Idiopathic chronic gout, multiple sites, without tophus (tophi); G25.81 Restless legs syndrome; I25.10 Atherosclerotic heart disease of native coronary artery without angina pectoris; I25.2 Old myocardial infarction; Z88.8 Allergy status to other drugs, medicaments and biological substances; Z82.49 Family history of ischemic heart disease and other diseases of the circulatory system; Z79.51 Long term (current) use of inhaled steroids; Z79.82 Long term (current) use of aspirin; Z79.899 Other long term (current) drug therapy